=== PATIENT | female | born 1955 ===

== ENCOUNTER 2020-03-13 12:12 | Outpatient (REF) | payer MEDICARE, SELFPAY ==
--- NOTE | 2020-03-13 12:20 | MM_ITS ---
EXAMINATION: MM SCREENING DIGITAL BREAST TOMOSYNTHESIS, BILATERAL CLINICAL INFORMATION: Screening. Asymptomatic. The lifetime risk of breast cancer based on the Tyrer-Cuzick Model is 4.5%. COMPARISON: Mammography: March 08, 2019 and studies dating back to December 19, 2009 TECHNIQUE: Digital breast tomosynthesis is performed in both the craniocaudal and mediolateral oblique views along with computer-aided detection (CAD). Synthesized 2D images are generated from the tomosynthesis. Additional left cleavage view performed. FINDINGS: There are scattered areas of fibroglandular density (ACR BI-RADS breast composition Category b). Region of architectural distortion within the right breast again seen from previous surgery. No new abnormal dominant mass or suspicious grouping of microcalcifications identified. MM/MM tomosynthesis screening BI IMPRESSION: There are no significant changes from prior study. ASSESSMENT: BI-RADS 2: Benign RECOMMENDATION: Routine annual mammography screening. This patient's information was entered into a reminder system with a target due date for their next mammogram.
== END 2020-03-13 12:13 | disposition home or self-care (01) ==
LOC: HO.MAMMO 12:12
PROVIDERS: PCP Family Medicine; Visit Provider Family Medicine
DX: Z12.31 Encounter for screening mammogram for malignant neoplasm of breast (principal)
CPT/HCPCS: 77063; 77067

== ENCOUNTER 2020-03-15 10:44 | Outpatient (REF) | payer MEDICARE, SELFPAY ==
[2020-03-15 13:39] LABS: Basophils Percent Auto 0.5 % (0-2); Hemoglobin 8.9 g/dl (12.0-16.0); Lymphocytes Percent Auto 47.3 % (20-40); MANUAL DIFF FLAG SCAN; Mean Platelet Volume 13.9 fL (9.4-12.3); Red Cell Distribution Width 13.4 % (11.0-16.0); SCAN SMEAR FLAG 1
[2020-03-15 13:41] LABS: Eosinophils Absolute Auto 0.2 X10*3/uL (0.0-0.4); Eosinophils Percent Auto 3.5 % (0-4); Hematocrit 28.9 % (37-47); Mean Corpuscular HGB Conc 30.8 g/dl (31.0-35.0); Mean Corpuscular Hemoglobin 28.5 pg (27.0-33.0); Mean Corpuscular Volume 92.6 fL (80-98); Monocytes Absolute Auto 0.5 X10*3/uL (0.1-1.2); Monocytes Percent Auto 12.1 % (2-11); Neutrophils Absolute Auto 1.6 X10*3/uL (2.0-8.3); Neutrophils Percent Auto 36.6 % (45-73); Platelet Count 193 X10*3/uL (160-400); Red Blood Count 3.12 X10*6/uL (4.20-5.50); White Blood Count 4.3 X10*3/uL (4.8-10.8)
[2020-03-15 13:58] LABS: PLT ABN DIST 1
[2020-03-15 14:03] LABS: Albumin Level 3.6 g/dL (3.5-5.0); Calcium 9.5 mg/dL (8.4-10.2); Iron 55 mcg/dL (30-160); Magnesium 2.3 mg/dL (1.6-2.6); Percent Iron Saturation 22 % (15-50); Total Iron Binding Capacity 250 mcg/dL (228-428); Unsaturated Iron Binding 195 ug/dL
[2020-03-15 14:12] LABS: Glucose Urine UA NEG (NEG); Leukocyte Esterase Urine 1+ (NEG); Nitrite Urine POS (NEG); PH 5.5 (5.0-8.0); Specific Gravity - Urine 1.015 (1.005-1.025); Urine Blood NEG (NEG); Urine Ketones NEG (NEG); Urine Protein NEG (NEG-TRACE)
[2020-03-15 14:15] LABS: Appearance Urine CLOUDY; Color Urine YELLOW
[2020-03-15 14:25] LABS: Ferritin 123 ng/mL (10-250)
[2020-03-15 14:27] LABS: Creatinine Urine 84.69 mg/dL; Total Protein Urine Random 7 mg/dL (<12)
[2020-03-15 14:28] LABS: Creatinine Urine 85.04 mg/dL; Microalbum/Creatinine Ratio Ur 22.3 ug/mg cr; Total Protein Urine Random 8 mg/dL (<12)
[2020-03-15 14:37] LABS: RBC Urine 0 /HPF (0); WBC Urine 30-49 /HPF (0-4)
[2020-03-15 14:38] LABS: Bacteria Urine 3+ /LPF; Squamous Epithelial Cell Urine 2+ /LPF; WBC Clumps Urine NOTED
[2020-03-15 15:13] LABS: Anion Gap 16 (12-20); Blood Urea Nitrogen 83 mg/dL (9-16); Carbon Dioxide 28 mmol/L (22-29); Chloride 105 mmol/L (96-108); Estimated Glomerular Filt Rate 19; Potassium 4.8 mmol/l (3.3-5.1); Sodium 144 mmol/L (135-145)
[2020-03-15 15:14] LABS: Renal w Reflex Lab Use Only Order verified
== END 2020-03-15 10:45 | disposition home or self-care (01) ==
LOC: HO.10HDL 10:44
PROVIDERS: Visit Provider Internal Medicine Nephrology
DX: E11.22 Type 2 diabetes mellitus with diabetic chronic kidney disease (principal); I13.10 Hypertensive heart and chronic kidney disease without heart failure, with stage 1 through stage 4 chronic kidney disease, or unspecified chronic kidney disease; N18.30 Chronic kidney disease, stage 3 unspecified; D63.1 Anemia in chronic kidney disease; E11.21 Type 2 diabetes mellitus with diabetic nephropathy
CPT/HCPCS: 36415; 80051; 81001; 81003; 81015; 82040; 82043; 82310; 82565; 82728; 83540; 83735; 84100; 84156; 84520; 85025; 87086; 87088; 87186

== ENCOUNTER 2020-03-28 08:04 | Outpatient (REF) | payer MEDICARE, SELFPAY ==
[2020-03-28 17:53] LABS: Estimated Average Glucose 154 mg/dL; Hemoglobin A1C 131.7705 umol/L
[2020-04-05 11:36] LABS: Fructosamine 313 umol/L (205-285)
== END 2020-03-28 08:05 | disposition home or self-care (01) ==
LOC: HO.10HDL 08:04
PROVIDERS: Visit Provider Nurse Practitioner Gerontology
DX: E11.22 Type 2 diabetes mellitus with diabetic chronic kidney disease (principal); N18.9 Chronic kidney disease, unspecified
CPT/HCPCS: 82985; 83036

== ENCOUNTER → 2020-03-29 09:23 | Outpatient (BNVA) | payer MEDICARE, SELFPAY | PROVIDERS: PCP Nurse Practitioner Family; Referring Provider Nurse Practitioner Family; Visit Provider Nurse Practitioner Gerontology | DX: E11.65 Type 2 diabetes mellitus with hyperglycemia (principal); E11.22 Type 2 diabetes mellitus with diabetic chronic kidney disease; I12.9 Hypertensive chronic kidney disease with stage 1 through stage 4 chronic kidney disease, or unspecified chronic kidney disease; N18.4 Chronic kidney disease, stage 4 (severe); E78.5 Hyperlipidemia, unspecified; Z79.4 Long term (current) use of insulin | CPT/HCPCS: 99212 ==

== ENCOUNTER → 2020-04-30 08:55 | Outpatient (BNVA) | payer MEDICARE, SELFPAY | PROVIDERS: PCP Nurse Practitioner Family; Referring Provider Nurse Practitioner Family; Visit Provider Nurse Practitioner Gerontology | DX: E11.65 Type 2 diabetes mellitus with hyperglycemia (principal); E11.22 Type 2 diabetes mellitus with diabetic chronic kidney disease; I12.9 Hypertensive chronic kidney disease with stage 1 through stage 4 chronic kidney disease, or unspecified chronic kidney disease; N18.4 Chronic kidney disease, stage 4 (severe); Z79.4 Long term (current) use of insulin; E78.5 Hyperlipidemia, unspecified; R11.2 Nausea with vomiting, unspecified | CPT/HCPCS: 82947; 99212 ==

== ENCOUNTER → 2020-05-14 08:52 | Outpatient (BNVA) | payer MEDICARE, SELFPAY | PROVIDERS: PCP Nurse Practitioner Family; Visit Provider Nurse Practitioner Gerontology | DX: E11.22 Type 2 diabetes mellitus with diabetic chronic kidney disease (principal); I12.9 Hypertensive chronic kidney disease with stage 1 through stage 4 chronic kidney disease, or unspecified chronic kidney disease; N18.4 Chronic kidney disease, stage 4 (severe); E78.5 Hyperlipidemia, unspecified; E03.9 Hypothyroidism, unspecified; Z79.4 Long term (current) use of insulin | CPT/HCPCS: 82947; 99212 ==

== ENCOUNTER → 2020-06-04 14:04 | Outpatient (BNVA) | payer MEDICARE, SELFPAY | PROVIDERS: PCP Nurse Practitioner Family; Visit Provider Urology | DX: Z13.89 Encounter for screening for other disorder (principal) | CPT/HCPCS: Q3014 ==

== ENCOUNTER → 2020-06-12 09:04 | Outpatient (BNVA) | payer MEDICARE, SELFPAY | PROVIDERS: Visit Provider Physician Assistant | DX: K21.9 Gastro-esophageal reflux disease without esophagitis (principal); R11.2 Nausea with vomiting, unspecified | CPT/HCPCS: Q3014 ==

== ENCOUNTER 2020-06-29 08:24 | Outpatient (REF) | payer MEDICARE, SELFPAY ==
[2020-06-29 09:53] LABS: Estimated Average Glucose 186 mg/dL; Hemoglobin A1c % 8.1 %
[2020-06-29 09:58] LABS: Creatinine Urine 117.94 mg/dL
[2020-06-29 10:04] LABS: Alanine Aminotransferase 11 U/L (0-31); Albumin Level 3.9 g/dL (3.5-5.0); Alkaline Phosphatase 87 U/L (39-117); Anion Gap 14 (12-20); Aspartate Amino Transferase 13 U/L (5-31); Bilirubin Total 0.4 mg/dL (0.0-1.0); Blood Urea Nitrogen 94 mg/dL (9-16); Calcium 9.2 mg/dL (8.4-10.2); Carbon Dioxide 25 mmol/L (22-29); Chloride 108 mmol/L (96-108); Cholesterol 89 mg/dL; Estimated Glomerular Filt Rate 21; Glucose Fasting 217 mg/dL (60-99); HDL Cholesterol 31 mg/dL; LDL Cholesterol Calculated 30 mg/dl; Potassium 4.6 mmol/L (3.3-5.1); Sodium 142 mmol/L (135-145); Triglycerides 140 mg/dL
[2020-06-30 08:17] LABS: LDL Cholesterol Direct 31 mg/dL (<100)
[2020-07-03 14:17] LABS: Fructosamine 377 umol/L (205-285)
== END 2020-06-29 08:25 | disposition home or self-care (01) ==
LOC: HO.LAB 08:24
PROVIDERS: PCP Family Medicine; Visit Provider Nurse Practitioner Gerontology
DX: E11.65 Type 2 diabetes mellitus with hyperglycemia (principal); E11.22 Type 2 diabetes mellitus with diabetic chronic kidney disease; N18.9 Chronic kidney disease, unspecified; Z79.4 Long term (current) use of insulin
CPT/HCPCS: 36415; 80053; 80061; 82043; 82985; 83036; 83721

== ENCOUNTER → 2020-08-02 08:11 | Outpatient (BNVA) | payer MEDICARE, SELFPAY | PROVIDERS: PCP Family Medicine; Visit Provider Nurse Practitioner Gerontology | DX: I12.9 Hypertensive chronic kidney disease with stage 1 through stage 4 chronic kidney disease, or unspecified chronic kidney disease (principal); E11.22 Type 2 diabetes mellitus with diabetic chronic kidney disease; E11.65 Type 2 diabetes mellitus with hyperglycemia; N18.4 Chronic kidney disease, stage 4 (severe); E66.01 Morbid (severe) obesity due to excess calories; Z68.37 Body mass index [BMI] 37.0-37.9, adult; E78.5 Hyperlipidemia, unspecified; Z79.4 Long term (current) use of insulin; Z71.3 Dietary counseling and surveillance | CPT/HCPCS: 82947; 99212 ==

== ENCOUNTER 2020-08-05 10:04 | Outpatient (REF) | payer MEDICARE, SELFPAY ==
[2020-08-05 12:06] LABS: Glucose Urine UA NEG (NEG); Leukocyte Esterase Urine 2+ (NEG); Nitrite Urine POS (NEG); PH 5.5 (5.0-8.0); Urine Blood NEG (NEG); Urine Ketones NEG (NEG); Urine Protein NEG (NEG-TRACE)
[2020-08-05 12:08] LABS: Appearance Urine CLOUDY; Color Urine YELLOW
[2020-08-05 12:11] LABS: Hematocrit 29.5 % (37-47); Hemoglobin 9.2 g/dl (12.0-16.0); Mean Corpuscular HGB Conc 31.2 g/dl (31.0-35.0); Mean Corpuscular Hemoglobin 28.3 pg (27.0-33.0); Mean Corpuscular Volume 90.8 fL (80-98); Platelet Count 226 X10*3/uL (160-400); Red Blood Count 3.25 X10*6/uL (4.20-5.50); Red Cell Distribution Width 12.4 % (11.0-16.0); White Blood Count 5.3 X10*3/uL (4.8-10.8)
[2020-08-05 12:15] LABS: Bacteria Urine 2+ /LPF; Squamous Epithelial Cell Urine 2+ /LPF; WBC Urine 50-75 /HPF (0-4)
[2020-08-05 12:29] LABS: Creatinine Urine 112.54 mg/dL; Microalbum/Creatinine Ratio Ur 75.5 ug/mg cr; Total Protein Urine Random 23 mg/dL (<12)
[2020-08-05 12:35] LABS: Albumin Level 3.9 g/dL (3.5-5.0); Anion Gap 12 (12-20); Blood Urea Nitrogen 61 mg/dL (9-16); Calcium 9.3 mg/dL (8.4-10.2); Carbon Dioxide 29 mmol/L (22-29); Chloride 105 mmol/L (96-108); Estimated Glomerular Filt Rate 22; Magnesium 2.4 mg/dL (1.6-2.6); Phosphorus 3.7 mg/dL (2.7-4.5); Potassium 5.5 mmol/L (3.3-5.1); Sodium 140 mmol/L (135-145)
[2020-08-05 12:50] LABS: Vitamin D 25-OH Total 31.6 ng/mL (>30)
[2020-08-06 16:16] LABS: PTHI 53 pg/mL (14-64)
== END 2020-08-05 10:05 | disposition home or self-care (01) ==
LOC: HO.10HDL 10:04
PROVIDERS: Visit Provider Internal Medicine Nephrology
DX: I12.9 Hypertensive chronic kidney disease with stage 1 through stage 4 chronic kidney disease, or unspecified chronic kidney disease (principal); E11.22 Type 2 diabetes mellitus with diabetic chronic kidney disease; N18.4 Chronic kidney disease, stage 4 (severe); D63.1 Anemia in chronic kidney disease; R80.1 Persistent proteinuria, unspecified
CPT/HCPCS: 36415; 80051; 81001; 82040; 82043; 82306; 82310; 82565; 83735; 83970; 84100; 84156; 84520; 85027; 87086; 87088; 87186

== ENCOUNTER 2020-08-26 09:46 | Outpatient (REF) | payer MEDICARE, SELFPAY ==
[2020-08-26 14:00] LABS: Hematocrit 29.6 % (37-47); Hemoglobin 9.3 g/dl (12.0-16.0); Mean Corpuscular HGB Conc 31.4 g/dl (31.0-35.0); Mean Corpuscular Hemoglobin 28.6 pg (27.0-33.0); Mean Corpuscular Volume 91.1 fL (80-98); Mean Platelet Volume 12.9 fL (9.4-12.3); Platelet Count 271 X10*3/uL (160-400); Red Blood Count 3.25 X10*6/uL (4.20-5.50)
[2020-08-26 14:22] LABS: Albumin Level 3.7 g/dL (3.5-5.0); Anion Gap 13 (12-20); Blood Urea Nitrogen 69 mg/dL (9-16); Calcium 9.1 mg/dL (8.4-10.2); Carbon Dioxide 25 mmol/L (22-29); Chloride 108 mmol/L (96-108); Estimated Glomerular Filt Rate 22; Magnesium 2.5 mg/dL (1.6-2.6); Phosphorus 4.3 mg/dL (2.7-4.5); Potassium 5.1 mmol/L (3.3-5.1); Sodium 141 mmol/L (135-145)
[2020-08-26 14:25] LABS: Glucose Urine UA NEG (NEG); Leukocyte Esterase Urine 1+ (NEG); Nitrite Urine POS (NEG); PH 5.5 (5.0-8.0); Urine Blood NEG (NEG); Urine Ketones NEG (NEG); Urine Protein TRACE MG/DL (NEG-TRACE)
[2020-08-26 14:33] LABS: Vitamin D 25-OH Total 27.5 ng/mL (>30)
[2020-08-26 14:39] LABS: Appearance Urine HAZY; Color Urine YELLOW
[2020-08-26 14:54] LABS: Creatinine Urine 90.06 mg/dL; Microalbum/Creatinine Ratio Ur 136.5 ug/mg cr; Total Protein Urine Random 28 mg/dL (<12)
[2020-08-26 15:30] LABS: Bacteria Urine 4+ /LPF; RBC Urine 0-2 /HPF (0); Renal Epithelial Cells Urine 2+ /LPF; Squamous Epithelial Cell Urine 2+ /LPF; WBC Urine 30-49 /HPF (0-4)
[2020-08-27 11:52] LABS: Calcium (PTHI) 9.2 mg/dL (8.6-10.4); PTHI 58 pg/mL (14-64)
== END 2020-08-26 09:47 | disposition home or self-care (01) ==
LOC: HO.10HDL 09:46
PROVIDERS: Visit Provider Internal Medicine Nephrology
DX: N18.4 Chronic kidney disease, stage 4 (severe) (principal)
CPT/HCPCS: 36415; 80051; 81001; 82040; 82043; 82306; 82310; 82565; 83735; 83970; 84100; 84156; 84520; 85027; 87086; 87088; 87186

== ENCOUNTER → 2020-10-28 09:34 | Outpatient (BNVA) | payer MEDICARE, SELFPAY | PROVIDERS: PCP Family Medicine; Visit Provider Nurse Practitioner Gerontology | DX: E11.65 Type 2 diabetes mellitus with hyperglycemia (principal); E11.22 Type 2 diabetes mellitus with diabetic chronic kidney disease; I12.9 Hypertensive chronic kidney disease with stage 1 through stage 4 chronic kidney disease, or unspecified chronic kidney disease; N18.4 Chronic kidney disease, stage 4 (severe); E66.01 Morbid (severe) obesity due to excess calories; E78.5 Hyperlipidemia, unspecified; E04.9 Nontoxic goiter, unspecified; E16.2 Hypoglycemia, unspecified; Z79.4 Long term (current) use of insulin; Z68.37 Body mass index [BMI] 37.0-37.9, adult | CPT/HCPCS: 82947; 99212 ==

== ENCOUNTER 2020-10-30 07:59 | Outpatient (REF) | payer MEDICARE, SELFPAY ==
[2020-10-30 09:20] LABS: Free T4 (Free Thyroxine) 0.98 ng/dL (0.71-1.85); Thyroid Stimulating Hormone 1.35 uIU/mL (0.32-4.0)
[2020-10-31 17:12] LABS: Thyroglobulin Antibodies <1 IU/mL (< or = 1)
[2020-10-31 21:16] LABS: Thyroid Peroxidase Antibodies 3 IU/mL (<9)
== END 2020-10-30 08:00 | disposition home or self-care (01) ==
LOC: HO.LAB 07:59
PROVIDERS: PCP Family Medicine; Visit Provider Nurse Practitioner Gerontology
DX: E04.9 Nontoxic goiter, unspecified (principal)
CPT/HCPCS: 36415; 84439; 84443; 86376; 86800

== ENCOUNTER 2020-11-14 10:03 | Outpatient (REF) | payer MEDICARE, SELFPAY ==
--- NOTE | ~2020-11-14 | US_ITS ---
EXAMINATION: US THYROID CLINICAL INFORMATION: Nontoxic goiter, unspecified. COMPARISON: None TECHNIQUE: Linear transducer jo-scale and color Doppler examination with attention to the region of the thyroid. FINDINGS: SIZE: Measurements of the thyroid lobes and nodules are given in sagittal, anteroposterior and transverse dimensions respectively. Right Thyroid Lobe: 4.1 x 1.1 x 1.5 cm, volume 3.5 mL. Parenchyma: The gland echotexture is homogeneous. Thyroid vascularity is normal. Left Thyroid Lobe: 3.6 x 1.1 x 1.0 cm, volume 2.1 mL. Parenchyma: The gland echotexture is homogeneous. Thyroid vascularity is normal. Isthmus: 0.3 cm in maximum AP dimension. No focal thyroid nodule is seen. Small subcentimeter cyst in left lobe. NODES: No lymphadenopathy is seen in the tissue surrounding the thyroid gland. US/US thyroid IMPRESSION: Unremarkable thyroid ultrasound. ACR TI-RADS RECOMMENDATION REFERENCE: Ultrasound-guided fine-needle aspiration, followup ultrasound, no further followup. * TR1 (0 point) and TR 2 (2 points): No FNA or followup. * TR3 (3 points): FNA if more than or equal to 2.5 cm in maximum dimension, followup ultrasound in 1, 3 and 5 years if 1.5 to 2.4 cm in maximum dimension. * TR4 (4-6 points): FNA if more than or equal to 1.5 cm in maximum dimension, followup ultrasound in 1, 2, 3 and 5 years if 1 to 1.4 cm in maximum dimension. * TR5 (more than or equal to 7 points): FNA if more than or equal to 1 cm in maximum dimension, followup ultrasound every year for 5 years if 0.5 to 0.9 cm in maximum dimension. * TR3, TR4 or TR5 nodules that are below the size threshold for followup receive no followup.
== END 2020-11-14 10:04 | disposition home or self-care (01) ==
LOC: HO.US 10:03
PROVIDERS: Visit Provider Nurse Practitioner Gerontology
DX: E04.9 Nontoxic goiter, unspecified (principal)
CPT/HCPCS: 76536

== ENCOUNTER 2020-11-28 12:45 | Outpatient (REF) | payer MEDICARE, SELFPAY ==
[2020-11-28 13:42] LABS: Glucose Urine UA NEG (NEG); Leukocyte Esterase Urine 2+ (NEG); Nitrite Urine NEG (NEG); Specific Gravity - Urine 1.015 (1.005-1.025); Urine Blood NEG (NEG); Urine Ketones NEG (NEG); Urine Protein 1+ MG/DL (NEG-TRACE)
[2020-11-28 13:44] LABS: Appearance Urine HAZY; Color Urine YELLOW
[2020-11-28 13:58] LABS: Bacteria Urine 2+ /LPF; Creatinine Urine 64.37 mg/dL; Hematocrit 29.5 % (37-47); Hemoglobin 9.2 g/dl (12.0-16.0); Mean Corpuscular HGB Conc 31.2 g/dl (31.0-35.0); Mean Corpuscular Hemoglobin 26.8 pg (27.0-33.0); Mean Platelet Volume 12.8 fL (9.4-12.3); Microalbum/Creatinine Ratio Ur 346.4 ug/mg cr; Platelet Count 223 X10*3/uL (160-400); Protein/Creatinine Ratio, Ur 0.56 (<0.2); RBC Urine 0-2 /HPF (0); Red Blood Count 3.43 X10*6/uL (4.20-5.50); Red Cell Distribution Width 13.9 % (11.0-16.0); Squamous Epithelial Cell Urine 1+ /LPF; Total Protein Urine Random 36 mg/dL (<12); WBC Urine 30-49 /HPF (0-4); White Blood Count 5.9 X10*3/uL (4.8-10.8)
[2020-11-28 14:02] LABS: Anion Gap 17 (12-20); Blood Urea Nitrogen 87 mg/dL (9-16); Calcium 9.7 mg/dL (8.4-10.2); Carbon Dioxide 25 mmol/L (22-29); Chloride 106 mmol/L (96-108); Estimated Glomerular Filt Rate 20; Iron 48 mcg/dL (30-160); Magnesium 2.3 mg/dL (1.6-2.6); Percent Iron Saturation 19 % (15-50); Phosphorus 4.4 mg/dL (2.7-4.5); Potassium 4.9 mmol/L (3.3-5.1); Sodium 143 mmol/L (135-145); Total Iron Binding Capacity 254 mcg/dL (228-428); Unsaturated Iron Binding 206 ug/dL
[2020-11-28 14:23] LABS: Ferritin 154 ng/mL (10-250); Vitamin D 25-OH Total 38.8 ng/mL (>30)
[2020-11-30 09:52] LABS: Calcium (PTHI) 9.6 mg/dL (8.6-10.4); PTHI 70 pg/mL (14-64)
== END 2020-11-28 12:46 | disposition home or self-care (01) ==
LOC: HO.10HDL 12:45
PROVIDERS: Visit Provider Internal Medicine Nephrology
DX: I12.9 Hypertensive chronic kidney disease with stage 1 through stage 4 chronic kidney disease, or unspecified chronic kidney disease (principal); N18.4 Chronic kidney disease, stage 4 (severe); E11.22 Type 2 diabetes mellitus with diabetic chronic kidney disease; D63.1 Anemia in chronic kidney disease; E87.5 Hyperkalemia; R80.1 Persistent proteinuria, unspecified; N25.0 Renal osteodystrophy
CPT/HCPCS: 36415; 80051; 81001; 82040; 82043; 82306; 82310; 82565; 82728; 83540; 83735; 83970; 84100; 84156; 84520; 85027; 87086; 87088; 87186

== ENCOUNTER 2020-12-10 17:11 | Emergency (ER) | payer MEDICARE, SELFPAY ==
[2020-12-10 17:49] VITALS: BP 189/63; PULSE 53; RESP 19; TEMP 36.9; O2SAT 98; BMI 36.1
--- NOTE | 2020-12-10 18:33 | ED_ITS ---
HPI - Skin/Abscess/Foreign Bdy General Chief complaint: Skin/Abscess/Foreign Body Stated complaint: rash Time Seen by Provider: 12/10/20 18:14 Source: patient Mode of arrival: ambulatory History of Present Illness HPI narrative: 65yo female with a past medical history of anemia of chronic disease, asthma, CKD, HTN, HLD, hypothyroid, diabetes, obesity, presenting to the ED complaining of erythematous pruritic rash noted to chest, upper ex tremities, abdomen, and lower extremities x3 days. Reports saw PCP yesterday as prescribed Clobetasol ointment with little relief. Denies fever, chills, recent travel, known insect bites, new exposures, SOB, wheezing, throat closing sensation, known allergens MD complaint: rash Related Data Home Medications Medication Instructions Recorded Confirmed furosemide 20 mg tablet 60 mg PO BID tab 03/29/20 10/28/20 levothyroxine 75 mcg tablet 75 mcg PO DAILY 03/29/20 10/28/20 metoprolol tartrate 25 mg tablet 25 mg PO DAILY 03/29/20 10/28/20 albuterol sulfate 90 mcg/actuation 0 mcg INHALATION 04/30/20 10/28/20 aerosol inhaler blood sugar diagnostic #10 ea 04/30/20 10/28/20 ergocalciferol (vitamin D2) 1,250 1,250 mcg PO .COMPLEX 04/30/20 10/28/20 mcg (50,000 unit) capsule lancets 33 gauge #100 ea 04/30/20 10/28/20 pen needle, diabetic 32 gauge x #50 ea 04/30/20 10/28/20 hydralazine 25 mg tablet 25 mg PO BID 06/04/20 10/28/20 valsartan 320 mg tablet 320 mg PO QAM 06/04/20 10/28/20 cholecalciferol (vitamin D3) 50 50 mcg PO DAILY 08/02/20 10/28/20 mcg (2,000 unit) tablet Previous Rx's Medication Instructions Recorded flash glucose scanning reader #1 ea 05/14/20 flash glucose sensor 1 ea TOPICAL Q2W #2 ea 05/14/20 pen needle, diabetic 32 gauge x #360 ea 05/14/20 oxybutynin chloride 10 mg 10 mg PO DAILY #30 tab 06/04/20 tablet,extended release 24 hr insulin aspart U-100 100 unit/mL 2 - 4 unit SUBCUT TID 90 Days #15 07/04/20 (3 mL) subcutaneous pen ml ezetimibe 10 mg tablet 10 mg PO BEDTIME #30 tab 08/11/20 pioglitazone 15 mg tablet 15 mg PO QAM #90 tab 08/16/20 alirocumab 75 mg/mL subcutaneous 75 mg SUBCUT Q2W #2 ml 09/18/20 pen injector rosuvastatin 40 mg tablet 40 mg PO BEDTIME #90 tab 10/11/20 famotidine 20 mg tablet 20 mg PO BEDTIME #30 tab 10/14/20 amlodipine 2.5 mg tablet 2.5 mg PO QPM #30 tab 10/28/20 amlodipine 5 mg tablet 5 mg PO QAM #30 tab 10/28/20 insulin glargine 100 unit/mL (3 15 unit SUBCUT QPM #15 ml 10/28/20 mL) subcutaneous pen cetirizine [Zyrtec] 10 mg PO DAILY #14 cap 12/10/20 diphenhydramine-zinc acetate 1 spray TOPICAL TID PRN #59 ml 12/10/20 [Benadryl Itch Cooling] Allergies Allergy/AdvReac Type Severity Reaction Status Date / Time No Known Allergies Allergy Verified 12/10/20 17:48 Review of Systems Review of Systems: Constitutional: No Fever, No Chills ENT/Mouth: No Ear Pain, No Hoarseness, No sore throat, No Rhinorrhea, No Swallowing Difficulty Cardiovascular: No Chest Pain, No SOB Respiratory: No Cough, No Sputum, No Wheezing Gastrointestinal: No Nausea, No Vomiting, No Abdominal pain Musculoskeletal: No joint pain, No Myalgias, No Joint Swelling Skin: No Skin Lesions, + rash Yes all other systems are reviewed and are negative [facility] Past Medical History Attestation statement: The following information was validated with the patient. Medical History Allergic rhinitis Anemia of chronic disease Asthma Chronic kidney disease, stage 4 (severe) Essential hypertension Hyperlipidemia LDL goal <70 Hypothyroidism Obesity Type 2 diabetes mellitus with chronic kidney disease Type 2 diabetes mellitus with hyperglycemia, with long-term current use of insulin Urge incontinence Urgency of micturition Surgical History History of breast lump/mass excision Hx of cholecystectomy Family History Family History Father CVD (cardiovascular disease) Mother Diabetes Social History Social History (Updated 06/12/20 @ 09:33 by Gretta Doherty PA-C) Household Members: Spouse Alcohol intake: never Advance Directives: No Advance Directives Information Provided: Yes Physical Exam Vital Signs: Vital Signs: Last Vital Signs Temp 98.5 F 12/10/20 17:49 Pulse 53 12/10/20 17:49 Resp 19 12/10/20 17:49 BP 189/63 H 12/10/20 17:49 Pulse Ox 98 12/10/20 17:49 Body Mass Index 36.1 Const: General: cooperative, healthy appearing and no acute distress Orientation/consciousness: patient oriented x3 Limitations: no limitations HENMT: Head: Yes normal to inspection Ears: hearing grossly normal bilaterally General nose exam: Normal external nose present Face and sinus: Yes normal facial exam Eyes: General: appearance normal, both eyes and all related structures EOM: EOMs intact bilaterally Neck: Neck: Yes normal visual inspection and Yes no meningeal signs Resp: Effort & Inspection: normal respiratory effort Auscultation: clear to auscultation bilaterally, no crackles, no rales, no rhonchi and no wheezes Cardio: Rate: regular rate Heart sounds: S1 normal heart sound present and S2 normal heart sound present GI: Inspection: Yes normal to inspection Skin: Other: Fine erythematous macular papular rash noted to abdomen, buttock, chest, and upper extremities No mucous membrane or palm or sole involvement Wounds: no wounds Neuro: General: patient oriented x3 and no meningeal signs Gait exam (Neuro): Normal gait present Extrem: General: Yes normal to inspection MDM - Skin/Abscess/Foreign Bdy MDM Narrative Medical decision making narrative: 65yo female with a past medical history of anemia of chronic disease, asthma, CKD, HTN, HLD, hypothyroid, diabetes, obesity, presenting to the ED complaining of erythematous pruritic rash noted to chest, upper extremities, abdomen, and lower extremities x3 days. On exam vital signs stable, NAD/well-appearing, physical exam as above. Exam consistent with contact dermatitis. No evidence of respiratory distress. No mucous membrane involvement. Likely contact dermatitis. With shared decision making decided to avoid p.o. prednisone due to patient being diabetic Will initiate Zyrtec, Benadryl, topical Benadryl, and dermatology follow-up Discharge Plan Discharge Clinical Impression: Contact dermatitis Patient Disposition: Home, Self-Care Instructions: Contact Dermatitis (ED) Additional Instructions: Continue using a topical steroid cream, only use prescribed cream or hydrocortisone, do not use both as they are both the same type of medication. Avoid application to face, genital area, hands or feet as can discolored skin You should start taking Benadryl, take at night as it and will make you drowsy Take Zyrtec during the day You may also apply topical Benadryl cream for itching Please follow-up with a pastoral counselor If her symptoms persist or worsen, rashes spreading, he developed any shortness of breath, wheezing please return to the ED Contin?e usando jairon crema con esteroides t?picos, solo use la crema recetada o hidrocortisona, no use ambas, ya que ambas son el mismo tipo de medicamento. Evite la aplicaci?n en la noa, el ?jaun genital, las clarice o los pies, ya que la piel puede decolorarse. Debe comenzar a darius Benadryl, t?henry por la noche ya que le adry? ru?o. Harmony Zyrtec colette el d?a. Tambi?n puede aplicar crema t?pica de Benadryl para la picaz?n. Haz un seguimiento con un dermat?logo. Si eden s?ntomas persisten o empeoran, las erupciones se extienden, ?l desarroll? dificultad para respirar, sibilancias, por favor regrese al servicio de urgencias. Prescriptions: New Zyrtec 10 mg capsule 10 mg PO DAILY Qty: 14 RF: 0 Benadryl Itch Cooling 2-0.1 % aerosol,spray 1 spray topical TID PRN (Reason: skin irritation) Qty: 59 RF: 0 No Action insulin aspart U-100 [Novolog Flexpen U-100 Insulin] 100 unit/mL (3 mL) insulin pen 2 - 4 unit subcut TID 90 Days Qty: 15 RF: 1 ezetimibe 10 mg tablet 10 mg PO BEDTIME Qty: 30 RF: 3 pioglitazone 15 mg tablet 15 mg PO QAM Qty: 90 RF: 1 Praluent Pen 75 mg/mL pen injector 75 mg subcut Q2W Qty: 2 RF: 3 rosuvastatin 40 mg tablet 40 mg PO BEDTIME Qty: 90 RF: 0 famotidine 20 mg tablet 20 mg PO BEDTIME Qty: 30 RF: 3 levothyroxine 75 mcg tablet 75 mcg PO DAILY RF: 0 metoprolol tartrate 25 mg tablet 25 mg PO DAILY RF: 0 furosemide 20 mg tablet 60 mg PO BID RF: 0 FreeStyle Juanita 14 Day Sensor Kit 1 ea topical Q2W Qty: 2 RF: 11 (DME) FreeStyle Juanita 14 Day [place]tt Misc See Rx Instructions .ROUTE .MEDSUPPLY Qty: 1 RF: 0 (DME) pen needle, diabetic [BD Ultra-Fine Maria E Pen Needle] 32 gauge x 5/32 needle See Rx Instructions .ROUTE .MEDSUPPLY Qty: 360 RF: 3 valsartan 320 mg tablet 320 mg PO QAM RF: 0 hydralazine 25 mg tablet 25 mg PO BID RF: 0 oxybutynin chloride 10 mg tablet extended release 24hr 10 mg PO DAILY Qty: 30 RF: 6 Lantus Solostar U-100 Insulin 100 unit/mL (3 mL) insulin pen 15 unit subcut QPM Qty: 15 RF: 3 amlodipine 2.5 mg tablet 2.5 mg PO QPM Qty: 30 RF: 3 amlodipine 5 mg tablet 5 mg PO QAM Qty: 30 RF: 3 cholecalciferol (vitamin D3) 50 mcg (2,000 unit) tablet 50 mcg PO DAILY RF: 0 (DME) lancets 33 gauge misc See Rx Instructions ea .ROUTE .MEDSUPPLY Qty: 100 RF: 0 (DME) pen needle, diabetic 32 gauge x 5/32 needle See Rx Instructions ea .ROUTE DAILY Qty: 50 RF: 0 ergocalciferol (vitamin D2) 1,250 mcg (50,000 unit) capsule 1,250 mcg PO .COMPLEX RF: 0 (DME) FreeStyle Lite Strips Strip See Rx Instructions ea Not Applicable BID Qty: 10 RF: 0 albuterol sulfate 90 mcg/actuation HFA aerosol inhaler 0 mcg inhalation RF: 0 Referrals: Melissa Cho PA [Physician Survey Crew Chief] - 2 days Guillaume Luna MD [Physician] - 2 days Nick Mccarthy MD [Physician] - 2 days Print Language: [place]
== END 2020-12-10 18:51 | disposition home or self-care (01) ==
PROVIDERS: Emergency Provider Internal Medicine
DX: L25.9 Unspecified contact dermatitis, unspecified cause (principal); E11.22 Type 2 diabetes mellitus with diabetic chronic kidney disease; I12.9 Hypertensive chronic kidney disease with stage 1 through stage 4 chronic kidney disease, or unspecified chronic kidney disease; N18.4 Chronic kidney disease, stage 4 (severe); D63.1 Anemia in chronic kidney disease
CPT/HCPCS: 99283

== ENCOUNTER → 2021-01-31 09:43 | Outpatient (BNVA) | payer MEDICARE, SELFPAY | PROVIDERS: Visit Provider Nurse Practitioner Gerontology | DX: E11.65 Type 2 diabetes mellitus with hyperglycemia (principal); E11.22 Type 2 diabetes mellitus with diabetic chronic kidney disease; I12.9 Hypertensive chronic kidney disease with stage 1 through stage 4 chronic kidney disease, or unspecified chronic kidney disease; N18.4 Chronic kidney disease, stage 4 (severe); E78.5 Hyperlipidemia, unspecified; E66.01 Morbid (severe) obesity due to excess calories; E55.9 Vitamin D deficiency, unspecified; Z68.37 Body mass index [BMI] 37.0-37.9, adult; Z79.4 Long term (current) use of insulin | CPT/HCPCS: 82947; 83036; 99212 ==

== ENCOUNTER 2021-03-19 10:23 | Outpatient (REF) | payer MEDICARE, SELFPAY ==
[2021-03-19 14:07] LABS: Appearance Urine HAZY; Color Urine YELLOW; Glucose Urine UA NEG (NEG); Leukocyte Esterase Urine 1+ (NEG); Nitrite Urine NEG (NEG); PH 5.5 (5.0-8.0); Specific Gravity - Urine 1.015 (1.005-1.025); Urine Blood NEG (NEG); Urine Ketones NEG (NEG); Urine Protein 1+ MG/DL (NEG-TRACE)
[2021-03-19 14:23] LABS: Hematocrit 31.7 % (37-47); Hemoglobin 9.8 g/dl (12.0-16.0); Mean Corpuscular HGB Conc 30.9 g/dl (31.0-35.0); Mean Corpuscular Hemoglobin 27.1 pg (27.0-33.0); Mean Corpuscular Volume 87.8 fL (80-98); Platelet Count 216 X10*3/uL (160-400); Red Blood Count 3.61 X10*6/uL (4.20-5.50); Red Cell Distribution Width 13.1 % (11.0-16.0); White Blood Count 6.2 X10*3/uL (4.8-10.8)
[2021-03-19 14:41] LABS: Anion Gap 14 (12-20); Blood Urea Nitrogen 60 mg/dL (9-16); Calcium 9.5 mg/dL (8.4-10.2); Carbon Dioxide 27 mmol/L (22-29); Chloride 104 mmol/L (96-108); Estimated Glomerular Filt Rate 24; Iron 40 mcg/dL (30-160); Magnesium 2.3 mg/dL (1.6-2.6); Percent Iron Saturation 16 % (15-50); Phosphorus 3.7 mg/dL (2.7-4.5); Potassium 5.1 mmol/L (3.3-5.1); Sodium 140 mmol/L (135-145); Total Iron Binding Capacity 251 mcg/dL (228-428); Unsaturated Iron Binding 211 ug/dL
[2021-03-19 14:48] LABS: Creatinine Urine 70.99 mg/dL; Microalbum/Creatinine Ratio Ur 681.7 ug/mg cr; Protein/Creatinine Ratio, Ur 0.99 (<0.2); Total Protein Urine Random 70 mg/dL (<12)
[2021-03-19 14:55] LABS: Vitamin D 25-OH Total 44.1 ng/mL (>30)
[2021-03-19 15:04] LABS: Bacteria Urine 3+ /LPF; Squamous Epithelial Cell Urine 2+ /LPF; WBC Urine 30-49 /HPF (0-4)
[2021-03-21 10:32] LABS: Calcium (PTHI) 9.5 mg/dL (8.6-10.4); PTHI 47 pg/mL (14-64)
== END 2021-03-19 10:24 | disposition home or self-care (01) ==
LOC: HO.10HDL 10:23
PROVIDERS: Visit Provider Internal Medicine Nephrology
DX: E11.29 Type 2 diabetes mellitus with other diabetic kidney complication (principal); E11.22 Type 2 diabetes mellitus with diabetic chronic kidney disease; N18.4 Chronic kidney disease, stage 4 (severe); R80.1 Persistent proteinuria, unspecified; N25.0 Renal osteodystrophy; D63.1 Anemia in chronic kidney disease
CPT/HCPCS: 36415; 80051; 81001; 82040; 82043; 82306; 82310; 82565; 83540; 83735; 83970; 84100; 84156; 84520; 85027; 87086; 87088; 87186

== ENCOUNTER 2021-03-26 11:34 | Outpatient (REF) | payer MEDICARE, SELFPAY ==
--- NOTE | ~2021-03-26 | MM_ITS ---
EXAMINATION: MM SCREENING DIGITAL BREAST TOMOSYNTHESIS, BILATERAL CLINICAL INFORMATION: Screening. Asymptomatic. Prior history right breast surgical biopsy 2012. The lifetime risk of breast cancer based on the Tyrer-Cuzick Model is 5%. COMPARISON: Mammography: 03/13/2020, 03/08/2019, 02/14/2018 TECHNIQUE: Digital breast tomosynthesis is performed in both the craniocaudal and mediolateral oblique views along with computer-aided detection (CAD). Synthesized 2D images are generated from the tomosynthesis. Additional exaggerated left CC view is provided. FINDINGS: There are scattered areas of fibroglandular density (ACR BI-RADS breast composition Category b). Parenchymal pattern is similar to prior studies. There is no developing density or interval mass or architectural abnormality. There is old scarring right breast upper outer quadrant again seen consistent with the prior surgery 2012. Grouped benign coarse calcifications are again noted anterior central 3:00 right breast and there is a incidental circumscribed nodule with associated coarse calcification posterior 3:00 left breast. Scattered bilateral vascular calcifications are present. There are no significant changes. MM/MM tomosynthesis screening BI IMPRESSION: No mammographic evidence of malignancy. ASSESSMENT: BI-RADS 2: Benign RECOMMENDATION: Routine annual mammography screening. This patient's information was entered into a reminder system with a target due date for their next mammogram.
== END 2021-03-26 11:35 | disposition home or self-care (01) ==
LOC: HO.MAMMO 11:34
PROVIDERS: Visit Provider Internal Medicine Geriatric Medicine
DX: Z12.31 Encounter for screening mammogram for malignant neoplasm of breast (principal)
CPT/HCPCS: 77063; 77067

== ENCOUNTER → 2021-03-31 13:32 | Outpatient (BNVA) | payer MEDICARE, SELFPAY | DX: N39.41 Urge incontinence (principal); R39.15 Urgency of urination | CPT/HCPCS: 51798; 99212 ==

== ENCOUNTER 2021-07-31 11:14 | Outpatient (REF) | payer MEDICARE, SELFPAY ==
[2021-07-31 14:16] LABS: Appearance Urine HAZY; Color Urine YELLOW; Glucose Urine UA NEG (NEG); Leukocyte Esterase Urine 2+ (NEG); Nitrite Urine POS (NEG); Specific Gravity - Urine 1.015 (1.005-1.025); Urine Blood NEG (NEG); Urine Ketones NEG (NEG); Urine Protein 1+ MG/DL (NEG-TRACE)
[2021-07-31 14:17] LABS: Albumin Level 3.9 g/dL (3.5-5.0); Calcium 9.4 mg/dL (8.4-10.2); Hematocrit 33.1 % (37.0-47.0); Hemoglobin 10.3 g/dl (12.0-16.0); Iron 68 mcg/dL (30-160); Magnesium 2.5 mg/dL (1.6-2.6); Mean Corpuscular HGB Conc 31.1 g/dl (31.0-35.0); Mean Corpuscular Hemoglobin 28.5 pg (27.0-33.0); Mean Corpuscular Volume 91.4 fL (80.0-98.0); Mean Platelet Volume 13.7 fL (9.4-12.3); Percent Iron Saturation 30 % (15-50); Phosphorus 4.7 mg/dL (2.7-4.5); Platelet Count 210 X10*3/uL (160-400); Red Blood Count 3.62 X10*6/uL (4.20-5.50); Red Cell Distribution Width 13.1 % (11.0-16.0); Total Iron Binding Capacity 230 mcg/dL (228-428); Unsaturated Iron Binding 162 ug/dL
[2021-07-31 14:30] LABS: Creatinine Urine 83.75 mg/dL; Microalbum/Creatinine Ratio Ur 459.7 ug/mg cr; Protein/Creatinine Ratio, Ur 0.69 (<0.2); Total Protein Urine Random 58 mg/dL (<12)
[2021-07-31 14:39] LABS: Vitamin D 25-OH Total 43.1 ng/mL (>30)
[2021-07-31 14:42] LABS: Bacteria Urine 4+ /LPF; RBC Urine 0 /HPF (0); Squamous Epithelial Cell Urine 1+ /LPF; WBC Urine 50-75 /HPF (0-4)
[2021-08-01 18:21] LABS: Calcium (PTHI) 9.5 mg/dL (8.6-10.4); PTHI 76 pg/mL (14-64)
== END 2021-07-31 11:15 | disposition home or self-care (01) ==
LOC: HO.10HDL 11:14
PROVIDERS: Visit Provider Internal Medicine Nephrology
DX: N18.4 Chronic kidney disease, stage 4 (severe) (principal); E11.22 Type 2 diabetes mellitus with diabetic chronic kidney disease; D63.1 Anemia in chronic kidney disease; R80.1 Persistent proteinuria, unspecified
CPT/HCPCS: 36415; 81001; 82040; 82043; 82306; 82310; 83540; 83735; 83970; 84100; 84156; 85027; 87086; 87088; 87186

== ENCOUNTER → 2021-08-12 08:13 | Outpatient (BNVA) | payer MEDICARE, SELFPAY | PROVIDERS: Visit Provider Nurse Practitioner Gerontology | DX: E11.65 Type 2 diabetes mellitus with hyperglycemia (principal); E11.42 Type 2 diabetes mellitus with diabetic polyneuropathy; E11.22 Type 2 diabetes mellitus with diabetic chronic kidney disease; I12.9 Hypertensive chronic kidney disease with stage 1 through stage 4 chronic kidney disease, or unspecified chronic kidney disease; N18.4 Chronic kidney disease, stage 4 (severe); E78.5 Hyperlipidemia, unspecified; E66.01 Morbid (severe) obesity due to excess calories; E55.9 Vitamin D deficiency, unspecified; Z68.34 Body mass index [BMI] 34.0-34.9, adult; Z79.4 Long term (current) use of insulin | CPT/HCPCS: 82947; 83036; 99212 ==

== ENCOUNTER 2021-08-15 08:27 | Outpatient (REF) | payer MEDICARE, SELFPAY ==
--- NOTE | ~2021-08-15 | MM_ITS ---
EXAMINATION: BONE DENSITOMETRY CLINICAL INDICATION: Menopause. COMPARISON: Previous BD dated 09/08/2018 and baseline BD dated 01/18/2007. TECHNIQUE: Using a [employer]i DXA System (software version: 13.1) manufactured by [employer] dual-energy x-ray absorptiometry was performed of the lumbar spine and left hip. The images are of good technical quality. Summary results are attached. FINDINGS: AP SPINE L1-L4: Current: BMD 1.081 g/cm2, Z-score 0.3, T-score -0.8, normal, 5.9% decrease from previous, 6.6% decrease from baseline (<5% change is not significant). Prior: BMD 1.149 g/cm2. Baseline: BMD 1.158 g/cm2. LEFT FEMUR, NECK: Current: BMD 0.748 g/cm2, Z-score -0.8, T-score -2.1, osteopenia. Prior: BMD 0.895 g/cm2. Baseline: BMD 0.896 g/cm2. LEFT FEMUR, TOTAL: Current: BMD 0.773 g/cm2, Z-score -0.9, T-score -1.9, osteopenia, 10.6% decrease from previous, 22.3% decrease from baseline (<5% change is not significant). Prior: BMD 0.865 g/cm2. Baseline: BMD 0.995 g/cm2. IDENTIFIED RISK FACTORS: Early menopause, history of fracture (adult), osteoporosis, rheumatoid arthritis, secondary osteoporosis. HISTORY OF FRACTURE: Humerus. MEDICATIONS: Vitamin D. MM/XR DEXA axial skeleton IMPRESSION: 1. DIAGNOSIS: Osteopenia based on the lowest T-score value of -2.1 in the femoral neck applying World Health Organization criteria. 2. 10-YEAR FRACTURE RISK PREDICTION, FRAX: Major osteoporotic fracture (clinical spine, forearm, hip or shoulder) 13.2%. Hip fracture 2.4%. 3. Treatment Recommendations: NOF guidelines recommend consideration for treatment in postmenopausal women and men age 50 and older presenting with the following: -A hip or vertebral (clinical or morphometric) fracture. -T-score less than or equal to -2.5 at the femoral neck or spine after appropriate evaluation to exclude secondary causes. -Low bone mass at the hip or spine and a 10-year fracture probability by FRAX of greater than or equal to 3% for hip fracture or greater than or equal to 20% for major osteoporotic fracture based on the [place] adapted WHO algorithm. 4. Other Recommendations: All treatment decisions require clinical judgment and consideration of individual patient factors, including patient preferences, comorbidities, previous drug use, risk factors not captured in the FRAX model (e.g. frailty, falls, vitamin D deficiency, increased bone turnover, interval significant decline in bone density) and possible under or overestimation of fracture risk by FRAX. Additional medical evaluation for secondary cause of low bone mineral density may be appropriate. FUTURE SCAN RECOMMENDATION: People with diagnosed cases of osteoporosis or at high risk for fracture should have regular bone mineral density tests. For patients eligible for Medicare, routine testing is allowed once every 2 years. The testing frequency can be increased to one year for patients who have rapidly progressing disease, those who are receiving or discontinuing medical therapy to restore bone mass, or have additional risk factors.
== END 2021-08-15 08:28 | disposition home or self-care (01) ==
LOC: HO.MAMMO 08:27
PROVIDERS: Visit Provider Internal Medicine Geriatric Medicine
DX: Z13.820 Encounter for screening for osteoporosis (principal); Z78.0 Asymptomatic menopausal state; M85.80 Other specified disorders of bone density and structure, unspecified site; Z79.899 Other long term (current) drug therapy
CPT/HCPCS: 77080

== ENCOUNTER → 2021-08-29 13:38 | Outpatient (BNVA) | payer OTHER, SELFPAY | PROVIDERS: PCP Internal Medicine Geriatric Medicine | DX: R39.15 Urgency of urination (principal) | CPT/HCPCS: 51798; 99212 ==

== ENCOUNTER 2021-09-25 18:43 | Emergency (ER) | payer OTHER, SELFPAY ==
[2021-09-25 18:49] VITALS: BP 174/52; PULSE 70; RESP 18; TEMP 36.1; O2SAT 97; BMI 32.8
--- NOTE | 2021-09-25 19:24 | PC.NURSE ---
Patient has a history of hemmorrhoids. Patient is unable to have the surgery so she is having spasms that are very painful and needs something to take the pain away because she is unable to sit.
== END 2021-09-25 19:56 | disposition home or self-care (01) ==
PROVIDERS: Emergency Provider Emergency Medicine Emergency Medical Services; PCP Internal Medicine Geriatric Medicine
DX: M62.838 Other muscle spasm (principal); K64.9 Unspecified hemorrhoids
CPT/HCPCS: 99283; 99284

== ENCOUNTER 2021-10-02 07:54 | Outpatient (REF) | payer OTHER, SELFPAY ==
[2021-10-02 08:21] LABS: MANUAL DIFF FLAG NO
[2021-10-02 08:43] LABS: Basophils Percent Auto 0.4 % (0-2); Eosinophils Absolute Auto 0.1 X10*3/uL (0.0-0.4); Hematocrit 33.4 % (37.0-47.0); Hemoglobin 10.3 g/dl (12.0-16.0); Imm Gran Abs Auto 0.01 X10*3/uL (0.00-0.03); Imm Gran Pct Auto 0.2 % (0.0-0.4); Lymphocytes Percent Auto 42.3 % (20-40); Mean Corpuscular HGB Conc 30.8 g/dl (31.0-35.0); Mean Corpuscular Hemoglobin 28.4 pg (27.0-33.0); Mean Platelet Volume 11.8 fL (9.4-12.3); Monocytes Absolute Auto 0.5 X10*3/uL (0.1-1.2); Monocytes Percent Auto 11.4 % (2-11); Neutrophils Percent Auto 42.7 % (45-73); Platelet Count 227 X10*3/uL (160-400); Red Blood Count 3.63 X10*6/uL (4.20-5.50); Red Cell Distribution Width 12.5 % (11.0-16.0); White Blood Count 4.6 X10*3/uL (4.8-10.8)
[2021-10-02 09:22] LABS: Anion Gap 13 (12-20); Blood Urea Nitrogen 68 mg/dL (9-16); Calcium 9.7 mg/dL (8.4-10.2); Carbon Dioxide 25 mmol/L (22-29); Chloride 110 mmol/L (96-108); Estimated Glomerular Filt Rate 21; Iron 71 mcg/dL (30-160); Percent Iron Saturation 32 % (15-50); Potassium 5.4 mmol/L (3.3-5.1); Sodium 143 mmol/L (135-145); Total Iron Binding Capacity 219 mcg/dL (228-428); Unsaturated Iron Binding 148 ug/dL
[2021-10-02 10:04] LABS: Appearance Urine CLEAR; Color Urine YELLOW; Glucose Urine UA >=1000 MG/DL (NEG); Leukocyte Esterase Urine 2+ (NEG); Nitrite Urine POS (NEG); Specific Gravity - Urine 1.015 (1.005-1.025); Urine Blood NEG (NEG); Urine Ketones NEG (NEG); Urine Protein NEG (NEG-TRACE)
[2021-10-02 10:23] LABS: Creatinine Urine 90.51 mg/dL; Microalbum/Creatinine Ratio Ur 100.5 ug/mg cr; Protein/Creatinine Ratio, Ur 0.23 (<0.2); Total Protein Urine Random 21 mg/dL (<12)
[2021-10-02 11:12] LABS: Bacteria Urine 4+ /LPF; RBC Urine 0 /HPF (0); Renal Epithelial Cells Urine TRACE /LPF; Squamous Epithelial Cell Urine 1+ /LPF; WBC Clumps Urine NOTED; WBC Urine 30-49 /HPF (0-4)
== END 2021-10-02 07:55 | disposition home or self-care (01) ==
LOC: HO.LAB 07:54
PROVIDERS: PCP Internal Medicine Geriatric Medicine; Visit Provider Internal Medicine Nephrology
DX: I12.9 Hypertensive chronic kidney disease with stage 1 through stage 4 chronic kidney disease, or unspecified chronic kidney disease (principal); N18.4 Chronic kidney disease, stage 4 (severe); E11.22 Type 2 diabetes mellitus with diabetic chronic kidney disease
CPT/HCPCS: 36415; 80051; 81001; 81003; 82043; 82310; 82565; 83540; 84156; 84520; 85025

== ENCOUNTER → 2021-10-09 13:29 | Outpatient (BNVA) | payer OTHER, SELFPAY | PROVIDERS: Visit Provider Surgery | DX: K64.8 Other hemorrhoids (principal) | CPT/HCPCS: 46600; 99202 ==

== ENCOUNTER 2021-11-19 08:44 | Outpatient (REF) | payer OTHER, SELFPAY ==
[2021-11-19 10:55] LABS: Alanine Aminotransferase 13 U/L (0-31); Albumin Level 3.8 g/dL (3.5-5.0); Alkaline Phosphatase 145 U/L (39-117); Aspartate Amino Transferase 17 U/L (5-31); Bilirubin Direct 0.2 mg/dL (0.0-0.5); Bilirubin Total 0.4 mg/dL (0.0-1.0); Cholesterol 128 mg/dL; HDL Cholesterol 29 mg/dL; LDL Cholesterol Calculated 52 mg/dl; Triglycerides 235 mg/dL
[2021-11-19 11:06] LABS: TSH reflex Free T4 2.18 uIU/mL (0.32-4.0)
== END 2021-11-19 08:45 | disposition home or self-care (01) ==
LOC: HO.10HDL 08:44
PROVIDERS: Visit Provider Internal Medicine Geriatric Medicine
DX: E03.9 Hypothyroidism, unspecified (principal); E11.9 Type 2 diabetes mellitus without complications; Z79.899 Other long term (current) drug therapy
CPT/HCPCS: 36415; 80061; 80076; 84443

== ENCOUNTER → 2021-11-28 10:58 | Outpatient (BNVA) | payer OTHER, SELFPAY | PROVIDERS: PCP Internal Medicine Geriatric Medicine | DX: N32.81 Overactive bladder (principal); Z79.899 Other long term (current) drug therapy | CPT/HCPCS: 51798; 99212 ==

== ENCOUNTER 2022-02-05 08:56 | Outpatient (REF) | payer OTHER, SELFPAY ==
[2022-02-05 10:35] LABS: Appearance Urine Cloudy; Color Urine Yellow; Glucose Urine UA Negative (Negative); Leukocyte Esterase Urine Large (3+) (Negative); Nitrite Urine Positive (Negative); PH 5.5 (5.0-9.0); Specific Gravity - Urine 1.015 (1.005-1.025); UMIC TRIGGER UA YES; Urine Blood Negative (Negative); Urine Ketones Negative (Negative); Urine Protein 30 (1+) mg/dL (Neg-Trace)
[2022-02-05 10:40] LABS: Bacteria Urine 4+ (None Seen); RBC Urine 0-2 /HPF (0-2); WBC Urine >50 /HPF (0-5)
[2022-02-05 11:12] LABS: Hematocrit 35.4 % (37.0-47.0); Mean Corpuscular HGB Conc 31.1 g/dl (31.0-35.0); Mean Corpuscular Hemoglobin 28.2 pg (27.0-33.0); Mean Corpuscular Volume 90.8 fL (80.0-98.0); Mean Platelet Volume 13.2 fL (9.4-12.3); Platelet Count 192 X10*3/uL (160-400); White Blood Count 5.7 X10*3/uL (4.8-10.8)
[2022-02-05 11:18] LABS: Creatinine Urine 99.08 mg/dL; Protein/Creatinine Ratio, Ur 0.29 (<0.2); Total Protein Urine Random 29 mg/dL (<12)
[2022-02-05 11:22] LABS: Albumin Level 3.9 g/dL (3.5-5.0); Anion Gap 15 (12-20); Blood Urea Nitrogen 62 mg/dL (9-16); Calcium 9.8 mg/dL (8.4-10.2); Carbon Dioxide 26 mmol/L (22-29); Chloride 106 mmol/L (96-108); Estimated Glomerular Filt Rate 23; Iron 64 mcg/dL (30-160); Magnesium 2.1 mg/dL (1.6-2.6); Percent Iron Saturation 28 % (15-50); Phosphorus 4.1 mg/dL (2.7-4.5); Potassium 5.3 mmol/L (3.3-5.1); Sodium 142 mmol/L (135-145); Total Iron Binding Capacity 228 mcg/dL (228-428); Unsaturated Iron Binding 164 ug/dL
[2022-02-05 11:42] LABS: Vitamin D 25-OH Total 49.4 ng/mL (>30)
[2022-02-08 13:16] LABS: Calcium (PTHI) 9.7 mg/dL (8.6-10.4); PTHI 51 pg/mL (16-77)
== END 2022-02-05 08:57 | disposition home or self-care (01) ==
LOC: HO.10HDL 08:56
PROVIDERS: Visit Provider Internal Medicine Nephrology
DX: N18.4 Chronic kidney disease, stage 4 (severe) (principal); E11.22 Type 2 diabetes mellitus with diabetic chronic kidney disease; N25.0 Renal osteodystrophy; R80.1 Persistent proteinuria, unspecified; D63.1 Anemia in chronic kidney disease
CPT/HCPCS: 36415; 80051; 81001; 82040; 82306; 82310; 82565; 83540; 83735; 83970; 84100; 84156; 84520; 85027; 87086; 87088; 87186

== ENCOUNTER 2022-04-08 07:55 | Outpatient (REF) | payer OTHER, SELFPAY ==
--- NOTE | ~2022-04-08 | MM_ITS ---
EXAMINATION: MM SCREENING DIGITAL BREAST TOMOSYNTHESIS, BILATERAL CLINICAL INFORMATION: Screening. Asymptomatic. Prior right breast surgical biopsy, 2012. COMPARISON: Mammography: 03/26/2021, 03/13/2020, 03/08/2019 TECHNIQUE: Digital breast tomosynthesis is performed in both the craniocaudal and mediolateral oblique views along with computer-aided detection (CAD). Synthesized 2D images are generated from the tomosynthesis. FINDINGS: There are scattered areas of fibroglandular density (ACR BI-RADS breast composition Category b). There are no significant masses, abnormal calcifications, or other abnormalities. Parenchymal pattern is similar to prior studies. There is minor scarring anterior outer right breast consistent with the prior surgery. There is no developing density or interval architectural abnormality. There is a benign stable oval nodule with associated bulky calcification posterior 3:00 left breast likely degenerating fibroadenoma. There are scattered bilateral ductal secretory, round, and vascular calcifications again seen. Benign grouped coarse calcifications again present central mid right breast. The axilla are unremarkable. No significant changes. MM/MM tomosynthesis screening BI IMPRESSION: No mammographic evidence of malignancy. ASSESSMENT: BI-RADS 2: Benign RECOMMENDATION: Routine annual mammography screening. This patient's information was entered into a reminder system with a target due date for their next mammogram.
== END 2022-04-08 07:56 | disposition home or self-care (01) ==
LOC: HO.MAMMO 07:55
PROVIDERS: PCP Internal Medicine Geriatric Medicine; Visit Provider Internal Medicine Geriatric Medicine
DX: Z12.31 Encounter for screening mammogram for malignant neoplasm of breast (principal)
CPT/HCPCS: 77063; 77067

== ENCOUNTER 2022-11-27 07:37 | Outpatient (REF) | payer OTHER, SELFPAY ==
[2022-11-27 11:25] LABS: Anion Gap 15 (12-20); Blood Urea Nitrogen 78 mg/dL (9-16); Calcium 9.9 mg/dL (8.4-10.2); Carbon Dioxide 25 mmol/L (22-29); Chloride 108 mmol/L (96-108); Estimated Glomerular Filt Rate 18; Glucose Random 133 mg/dL (60-115); Potassium 5.3 mmol/L (3.3-5.1); Sodium 143 mmol/L (135-145)
== END 2022-11-27 07:38 | disposition home or self-care (01) ==
LOC: HO.10HDL 07:37
PROVIDERS: Visit Provider Internal Medicine Geriatric Medicine
DX: N18.4 Chronic kidney disease, stage 4 (severe) (principal)
CPT/HCPCS: 36415; 80048

== ENCOUNTER 2022-12-14 08:34 | Outpatient (REF) | payer OTHER, SELFPAY ==
[2022-12-14 11:53] LABS: Estimated Average Glucose 126 mg/dL
[2022-12-14 11:59] LABS: Anion Gap 12 (12-20); Blood Urea Nitrogen 69 mg/dL (9-16); Calcium 9.7 mg/dL (8.4-10.2); Carbon Dioxide 27 mmol/L (22-29); Chloride 111 mmol/L (96-108); Estimated Glomerular Filt Rate 25; Glucose Random 102 mg/dL (60-115); Sodium 145 mmol/L (135-145)
== END 2022-12-14 08:35 | disposition home or self-care (01) ==
LOC: HO.HHCL 08:34
PROVIDERS: Visit Provider Internal Medicine Geriatric Medicine
DX: D64.9 Anemia, unspecified (principal); E78.5 Hyperlipidemia, unspecified; E11.22 Type 2 diabetes mellitus with diabetic chronic kidney disease; N18.9 Chronic kidney disease, unspecified; Z79.4 Long term (current) use of insulin
CPT/HCPCS: 36415; 80048; 83036

== ENCOUNTER 2023-04-14 07:17 | Outpatient (REF) | payer OTHER, SELFPAY ==
--- NOTE | ~2023-04-14 | MM_ITS ---
EXAMINATION: MM SCREENING DIGITAL BREAST TOMOSYNTHESIS, BILATERAL CLINICAL INFORMATION: Screening. Asymptomatic. The patient has a history of prior benign excisional biopsies of the right breast. COMPARISON: Mammography: This study is compared with prior exams dating back to 2018. TECHNIQUE: Digital breast tomosynthesis is performed in both the craniocaudal and mediolateral oblique views along with computer-aided detection (CAD). Synthesized 2D images are generated from the tomosynthesis. FINDINGS: The breasts are almost entirely fatty (ACR BI-RADS breast composition Category a). There are no significant masses, abnormal calcifications, or other abnormalities. There are architectural changes in the superior aspect of the right breast from prior surgery. There are bilateral coarse calcifications are present above involuting fibroadenomata. MM/MM tomosynthesis screening BI IMPRESSION: No mammographic evidence of malignancy. ASSESSMENT: BI-RADS BI-RADS 2 - Benign Findings RECOMMENDATION: Routine annual mammography screening. 1 year F/U This examination should not preclude the clinical evaluation of a suspicious palpable abnormality. This patient's information was entered into a reminder system with a target due date for their next mammogram.
== END 2023-04-14 07:18 | disposition home or self-care (01) ==
LOC: HO.MAMMO 07:17
PROVIDERS: Visit Provider Internal Medicine Geriatric Medicine
DX: Z12.31 Encounter for screening mammogram for malignant neoplasm of breast (principal)
CPT/HCPCS: 77063; 77067

== ENCOUNTER → 2023-04-14 08:00 | Outpatient (BNV) | payer OTHER, SELFPAY | PROVIDERS: Visit Provider Radiology Diagnostic Radiology | DX: Z12.31 Encounter for screening mammogram for malignant neoplasm of breast (principal) | CPT/HCPCS: 77063; 77067 ==

== ENCOUNTER 2023-05-03 09:54 | Outpatient (AMB) | payer OTHER, SELFPAY ==
--- NOTE | 2023-05-03 10:03 | A.OFFVIS_ITS ---
Intake Intake Visit Reasons: Incontinence- follow up (rahul garrett 2021) Intake Note: Patient is present for follow up overactive bladder Urology Medications: myrbetriq (not currently taking) Blood Thinner: none PVR: 79ml's Used [employer] Porter Required: Yes [employer] Name: JANAY COKERSophiaKUMAR Accompanied by: Self / Same As Patient Allergies No Known Allergies Allergy (Verified 05/03/23 10:26) Medication List - Last Reconciled 05/03/23 by RICK Trujillo- albuterol sulfate 90 mcg/actuation 0 mcg inhalation alirocumab (Praluent Pen) 75 mg subcut Q2W amlodipine 5 mg PO DAILY blood sugar diagnostic As directed cetirizine (Zyrtec) 10 mg PO DAILY cholecalciferol (vitamin D3) 50 mcg PO DAILY cholecalciferol (vitamin D3) 25 mcg PO QAM dapagliflozin propanediol (Farxiga) 10 mg PO DAILY dibucaine 1% 1 appl PA TID diphenhydramine-zinc acetate 2-0.1 % (Benadryl Itch Cooling) 1 spray topical TID PRN ezetimibe TAKE 1 TABLET BY MOUTH AT BEDTIME famotidine 20 mg PO BEDTIME flash glucose scanning reader ([employer] Juanita 14 Day Lillian) As directed flash glucose sensor ([employer] Juanita 14 Day Sensor kit) 1 ea topical Q2W furosemide 60 mg PO BID hydralazine 25 mg PO BID hydrocortisone 2.5% (Proctozone-HC) 1 appl PA TID insulin aspart U-100 (Novolog FlexPen U-100 Insulin aspart) 2 - 8 units (0.02 - 0.08 mL) subcut TID 90 days insulin glargine (Lantus Solostar U-100 Insulin) 18 units (0.18 mL) subcut QPM lancets As directed levothyroxine 75 mcg PO DAILY metoprolol tartrate 25 mg PO DAILY mirabegron ER (Myrbetriq) 25 mg PO DAILY 30 days pen needle, diabetic As directed pen needle, diabetic (BD Ultra-Fine Maria E Pen Needle) As directed four times a day pioglitazone 15 mg PO QAM psyllium husk (with sugar) 3.4 gram/12 gram (Metamucil (with sugar)) 1 tbsp PO BID rosuvastatin 5 mg PO DAILY valsartan 320 mg PO QAM HPI HPI Comments History of Present Illness Details Kely is a very pleasant 67-year-old Kenyan-speaking female patient of Dr. Hayes. She has a past medical history of hemorrhoids, type 2 diabetes, vitamin-D deficiency, asthma, allergic rhinitis, hypothyroidism, obesity, anemia of chronic diseases, chronic kidney disease stage 4, hypertension, and hyperlipidemia. She presents to the office today as a new patient for ongoing lower urinary tract symptoms. In discussion with the patient today she reports to be doing and feeling well. She reports previously following up here with Trish MAURER in the past for lower urinary tract symptoms of urinary urgency, urinary frequency, and episodes of incontinence if not near a bathroom. She reports having been on a medication prior that she felt was extremely helpful however has not been on any urological medications for quite some time as she has not followed-up and ran out of refills. In review of patient's chart it appears last medication prescribed Myrbetriq 25 mg daily. She otherwise denies nocturia, hematuria, dysuria, foul smelling urine, changes to urinary stream, flank pain, fever, and or chills. In office urinalysis results reviewed with the patient today. When asked she does report to be following up with Nephrology Dr. Castillo. Discussed obtaining retroperitoneal ultrasound for further assessment evaluation. PVR 79 mL. Discussed attempting pelvic floor therapy however patient declines at this time. She otherwise offers no other issues or concerns at this time. [facility] Medical History Hemorrhoids with complication Hemorrhoid Type 2 diabetes mellitus with diabetic polyneuropathy Vitamin D deficiency Urgency of micturition Urge incontinence Asthma Allergic rhinitis Hypothyroidism Obesity Anemia of chronic disease Type 2 diabetes mellitus with hyperglycemia, with long-term current use of insulin Type 2 diabetes mellitus with chronic kidney disease Chronic kidney disease, stage 4 (severe) Essential hypertension Hyperlipidemia LDL goal <70 Surgical History Hx of cholecystectomy History of breast lump/mass excision Family History Father CVD (cardiovascular disease) Mother Diabetes Social History Household Members: Spouse Alcohol intake: never Patient Tobacco Use Status: Never used Tobacco Review of Systems Const Reports as per [facility] Eyes Reports no additional complaints ENT Reports no additional complaints Card Reports as per [facility] Resp Reports as per [facility] GI Reports as per [facility] Reports as per [facility] Musc Reports no additional complaints Neuro Reports no additional complaints Psych Reports no additional complaints Endo Reports as per [facility] Rich/Lymph Reports as per [facility] Aller/Immun Reports as per [facility] Physical Exam Const General: cooperative, healthy appearing, comfortable, no acute distress, well developed, alert and awake Nutritional Appearance: overweight Orientation/consciousness: patient oriented x3 Limitations: no limitations HEENT Head: Yes normal to inspection, Yes normocephalic and Yes atraumatic Ears: hearing grossly normal bilaterally Eyes General: appearance normal, both eyes and all related structures Neck Neck: Yes normal visual inspection and Yes trachea midline Chest Chest palpation & inspection: normal inspection of the chest Resp Effort & Inspection: normal respiratory effort and able to speak in complete sentences Cardio Rate: regular rate GI Inspection: Yes normal to inspection General: Yes no CVA tenderness Back/Spine/Pelvis Back: no CVA tenderness Skin General skin exam: no rashes or lesions noted Neuro General: patient oriented x3 Extrem General: Yes normal to inspection Psych Appearance: grossly normal and well kempt Mental Status: mental status grossly normal Speech and movement: Normal speech and movement present and Clear speech present Affect: normal affect Attitude: cooperative Thought process: Normal thought process present Thought content: Normal thought content present Insight: Fair insight present (Psych) Judgement: Fair judgement present (Psych) Office Procedures Post Void Residual Post Residual Void Post Void Residual (PVR): 79 [id number]-[id number] Void Residual by ultrasound Results AMB Urinalysis, Automated UA Leukoctes 125 Karlos/uL Last Edit by Kiya Guthrie on 05/03/23 10:19 UA Nitrite Negative Last Edit by Kiya Guthrie on 05/03/23 10:19 UA Urobilinogen 0.2 mg/dL Last Edit by Kiya Guthrie on 05/03/23 10:19 UA Protein 100 mg/dL Last Edit by Kiya Guthrie on 05/03/23 10:19 UA pH 5.5 Last Edit by Kiya Guthrie on 05/03/23 10:19 UA Blood 0 Clyde/uL Last Edit by Kiya Guthrie on 05/03/23 10:19 UA Specific Perrin 1.020 Last Edit by Kiya Guthrie on 05/03/23 10:19 UA Ketone Negative Last Edit by Kiya Guthrie on 05/03/23 10:19 UA Bilirubin 0 mg/dL Last Edit by Kiya Guthrie on 05/03/23 10:19 UA Glucose 100 mg/dL Last Edit by Kiya Guthrie on 05/03/23 10:19 Results Reviewed Results Reviewed: Laboratory Last Values Urine pH (Auto) 5.5 05/03/23 10:11 Specific Perrin (Auto) 1.020 05/03/23 10:11 Urine Protein (Auto) 100 mg/dL 05/03/23 10:11 Glucose (UA)(Auto) 100 mg/dL 05/03/23 10:11 Urine Ketones (Auto) Negative 05/03/23 10:11 Urine Blood (Auto) 0 Clyde/uL 05/03/23 10:11 Urine Nitrite (Auto) Negative 05/03/23 10:11 Urine Bilirubin (Auto) 0 mg/dL 05/03/23 10:11 Urine Urobilinogen (Auto) 0.2 mg/dL 05/03/23 10:11 Leukocyte Esterase (Auto) 125 Karlos/uL 05/03/23 10:11 Assessment & Plan Assessment & Plan (1) Lower urinary tract symptoms: Code(s): R39.9 - Unspecified symptoms and signs involving the genitourinary system (2) Urgency of micturition: Code(s): R39.15 - Urgency of urination (3) Urge incontinence: Code(s): N39.41 - Urge incontinence Plan In office urinalysis results reviewed with the patient today; as noted above. PVR 79 mL. Discussed at length potential causes for lower urinary tract symptoms patient has been experiencing. Start Myrbetriq as discussed and prescribed. Will obtain retroperitoneal ultrasound for further assessment evaluation. Discussed and stressed the importance of managing diabetes for improvement in lower urinary tract symptoms as well as overall health and well-being. Discussed and stressed the importance of managing constipation for improvement lower urinary tract symptoms as well as overall health and well-being. Discussed, educated, and stressed the importance of drinking plenty of water daily. Follow-up in 6 weeks with imaging to be completed prior; or sooner with any issues, concerns, and or questions. Orders: Orders AMB Urinalysis Automated Today Z13.9 - Encounter for screening, unspecified AMB Post Void Residual by ultrasound Today R39.15 - Urgency of urination US retroperitoneal comp Today N39.41 - Urge incontinence, R39.15 - Urgency of urination, R39.9 - Unspecified symptoms and signs involving the genitourinary system Medications: Changed From mirabegron ER (Myrbetriq) 25 mg PO DAILY 30 days 90 tabs 3RF R39.15 - Urgency of urination To mirabegron ER (Myrbetriq) 25 mg PO DAILY 90 tabs 0RF 90 days R39.15 - Urgency of urination Patient Instructions: The patient had an opportunity to ask questions regarding the treatment plan. A ll questions were answered. Physical exam, labs, and imaging were discussed and reviewed in detail. As well as risks, benefits, and discussion of treatment choices. No major barriers to understanding were identified. The patient expressed understanding and agreement with the above treatment plan. The patient was made aware they should contact our office by phone for worsening of their current condition, the appearance of new symptoms, or with any questions or concerns. Compliance is encouraged with any medications and follow up testing that is ordered. It is a privilege to be allowed the opportunity to participate in? your urological care.? Again, if you have any questions or concerns If you have any questions or concerns please do not hesitate to contact me. The office is [phone]. This note is constructed using voice recognition software. While every effort has been made to ensure accuracy window and siding craftsman errors may have been included. Yours sincerely, SEEMA Trujillo Coding Level of Care Code Est Pt Level 4 (81359) Diagnoses Lower urinary tract symptoms R39.9 Urgency of micturition R39.15 Urge incontinence N39.41 CPT Codes Post Residual Void - PVR CPT Code: 71036-Sast Void Residual by ultrasound ([id number])
== END 2023-05-03 10:31 | disposition home or self-care (01) ==
PROVIDERS: PCP Internal Medicine Geriatric Medicine; Visit Provider Nurse Practitioner Family
DX: R39.9 Unspecified symptoms and signs involving the genitourinary system (principal); N39.41 Urge incontinence; Z13.9 Encounter for screening, unspecified
CPT/HCPCS: 99214

== ENCOUNTER → 2023-05-03 09:54 | Outpatient (BNVA) | payer OTHER, SELFPAY | PROVIDERS: PCP Internal Medicine Geriatric Medicine; Visit Provider Nurse Practitioner Family | DX: N39.41 Urge incontinence (principal); R39.9 Unspecified symptoms and signs involving the genitourinary system; R39.15 Urgency of urination | CPT/HCPCS: 51798; 81003; 99212 ==

== ENCOUNTER 2023-06-03 11:43 | Outpatient (REF) | payer OTHER, SELFPAY ==
[2023-06-03 13:31] LABS: Anion Gap 11 (12-20); Blood Urea Nitrogen 57 mg/dL (9-16); Calcium 9.9 mg/dL (8.4-10.2); Carbon Dioxide 28 mmol/L (22-29); Chloride 110 mmol/L (96-108); Estimated Glomerular Filt Rate 29; Glucose Random 136 mg/dL (60-115); Potassium 5.1 mmol/L (3.3-5.1); Sodium 144 mmol/L (135-145)
== END 2023-06-03 11:44 | disposition home or self-care (01) ==
LOC: HO.HHCL 11:43
PROVIDERS: Visit Provider Internal Medicine Geriatric Medicine
DX: I12.9 Hypertensive chronic kidney disease with stage 1 through stage 4 chronic kidney disease, or unspecified chronic kidney disease (principal); N18.4 Chronic kidney disease, stage 4 (severe)
CPT/HCPCS: 36415; 80048

== ENCOUNTER 2023-06-25 08:48 | Outpatient (REF) | payer OTHER, SELFPAY ==
[2023-06-25 10:48] LABS: MANUAL DIFF FLAG NO
[2023-06-25 10:58] LABS: Basophils Percent Auto 0.7 % (0-2); Eosinophils Absolute Auto 0.2 X10*3/uL (0.0-0.4); Eosinophils Percent Auto 2.9 % (0-4); Hematocrit 32.5 % (37.0-47.0); Hemoglobin 10.4 g/dl (12.0-16.0); Imm Gran Abs Auto 0.01 X10*3/uL (0.00-0.03); Imm Gran Pct Auto 0.2 % (0.0-0.4); Lymphocytes Percent Auto 36.3 % (20-40); Mean Corpuscular Hemoglobin 28.7 pg (27.0-33.0); Mean Corpuscular Volume 89.8 fL (80.0-98.0); Mean Platelet Volume 12.5 fL (9.4-12.3); Monocytes Absolute Auto 0.6 X10*3/uL (0.1-1.2); Monocytes Percent Auto 9.9 % (2-11); Neutrophils Absolute Auto 2.8 x10*3/uL (2.0-8.3); Platelet Count 240 X10*3/uL (160-400); Red Blood Count 3.62 X10*6/uL (4.20-5.50); Red Cell Distribution Width 13.4 % (11.0-16.0); White Blood Count 5.5 X10*3/uL (4.8-10.8)
[2023-06-25 11:10] LABS: Albumin Level 3.4 g/dL (3.5-5.0); Anion Gap 12 (12-20); Blood Urea Nitrogen 56 mg/dL (9-16); Calcium 8.9 mg/dL (8.4-10.2); Carbon Dioxide 26 mmol/L (22-29); Chloride 108 mmol/L (96-108); Estimated Glomerular Filt Rate 25; Magnesium 2.3 mg/dL (1.6-2.6); Phosphorus 3.7 mg/dL (2.7-4.5); Potassium 4.8 mmol/L (3.3-5.1); Sodium 141 mmol/L (135-145)
[2023-06-25 11:20] LABS: Parathyroid Hormone Intact 112.1 pg/mL (8.7-77.1)
[2023-06-25 11:25] LABS: Vitamin D 25-OH Total 33.5 ng/mL (>30)
[2023-06-25 11:32] LABS: Appearance Urine Clear; Color Urine Yellow; Glucose Urine UA Negative (Negative); Leukocyte Esterase Urine Small (1+) (Negative); Nitrite Urine Positive (Negative); PH 5.5 (5.0-9.0); Specific Gravity - Urine 1.015 (1.005-1.025); UMIC TRIGGER UA YES; Urine Blood Negative (Negative); Urine Ketones Negative (Negative); Urine Protein 300 (3+) mg/dL (Neg-Trace)
[2023-06-25 11:36] LABS: Creatinine Urine 102.14 mg/dL; Protein/Creatinine Ratio, Ur 1.64 (<0.2); Total Protein Urine Random 168 mg/dL (<12)
[2023-06-25 11:39] LABS: Bacteria Urine 1+ (None Seen); RBC Urine 0-2 /HPF (0-2); WBC Urine 21-50 /HPF (0-5)
[2023-06-25 11:45] LABS: Microalbum/Creatinine Ratio Ur 1085.7 ug/mg cr (<30)
== END 2023-06-25 08:49 | disposition home or self-care (01) ==
LOC: HO.10HDL 08:48
PROVIDERS: Visit Provider Internal Medicine Nephrology
DX: N18.4 Chronic kidney disease, stage 4 (severe) (principal); D63.1 Anemia in chronic kidney disease; E11.29 Type 2 diabetes mellitus with other diabetic kidney complication; N25.0 Renal osteodystrophy; R80.1 Persistent proteinuria, unspecified
CPT/HCPCS: 36415; 80051; 81001; 82040; 82043; 82306; 82310; 82565; 82570; 83735; 83970; 84100; 84156; 84520; 85025

== ENCOUNTER 2023-10-06 08:11 | Outpatient (REF) | payer OTHER, SELFPAY ==
[2023-10-06 10:53] LABS: MANUAL DIFF FLAG NO
[2023-10-06 11:03] LABS: Basophils Percent Auto 0.7 % (0-2); Eosinophils Absolute Auto 0.2 X10*3/uL (0.0-0.4); Eosinophils Percent Auto 2.6 % (0-4); Hematocrit 33.8 % (37.0-47.0); Hemoglobin 10.6 g/dl (12.0-16.0); Imm Gran Abs Auto 0.01 X10*3/uL (0.00-0.03); Imm Gran Pct Auto 0.2 % (0.0-0.4); Lymphocytes Percent Auto 35.7 % (20-40); Mean Corpuscular HGB Conc 31.4 g/dl (31.0-35.0); Mean Corpuscular Hemoglobin 28.3 pg (27.0-33.0); Mean Corpuscular Volume 90.1 fL (80.0-98.0); Mean Platelet Volume 12.7 fL (9.4-12.3); Monocytes Absolute Auto 0.6 X10*3/uL (0.1-1.2); Monocytes Percent Auto 11.2 % (2-11); Neutrophils Absolute Auto 2.8 x10*3/uL (2.0-8.3); Neutrophils Percent Auto 49.6 % (45-73); Platelet Count 254 X10*3/uL (160-400); Red Blood Count 3.75 X10*6/uL (4.20-5.50); Red Cell Distribution Width 13.6 % (11.0-16.0); White Blood Count 5.7 X10*3/uL (4.8-10.8)
[2023-10-06 11:13] LABS: Appearance Urine Cloudy; Color Urine Yellow; Glucose Urine UA 500 mg/dL (Negative); Leukocyte Esterase Urine Moderate (2+) (Negative); Nitrite Urine Positive (Negative); Specific Gravity - Urine 1.015 (1.005-1.025); UMIC TRIGGER UA YES; Urine Blood Negative (Negative); Urine Ketones Negative (Negative); Urine Protein 100 (2+) mg/dL (Neg-Trace)
[2023-10-06 11:16] LABS: Bacteria Urine 4+ (None Seen); RBC Urine 0-2 /HPF (0-2); WBC Urine >50 /HPF (0-5)
[2023-10-06 11:33] LABS: Albumin Level 3.5 g/dL (3.5-5.0); Anion Gap 13 (12-20); Blood Urea Nitrogen 50 mg/dL (9-16); Calcium 9.2 mg/dL (8.4-10.2); Carbon Dioxide 27 mmol/L (22-29); Chloride 110 mmol/L (96-108); Estimated Glomerular Filt Rate 21; Magnesium 2.3 mg/dL (1.6-2.6); Phosphorus 4.1 mg/dL (2.7-4.5); Potassium 4.9 mmol/L (3.3-5.1); Sodium 145 mmol/L (135-145)
[2023-10-06 11:51] LABS: Vitamin D 25-OH Total 34.1 ng/mL (>30)
[2023-10-06 11:59] LABS: Parathyroid Hormone Intact 181.5 pg/mL (8.7-77.1)
[2023-10-06 12:05] LABS: Creatinine Urine 120.28 mg/dL; Protein/Creatinine Ratio, Ur 0.87 (<0.2); Total Protein Urine Random 105 mg/dL (<12)
[2023-10-06 12:17] LABS: Microalbum/Creatinine Ratio Ur 567.8 ug/mg cr (<30)
== END 2023-10-06 08:12 | disposition home or self-care (01) ==
LOC: HO.10HDL 08:11
PROVIDERS: Visit Provider Internal Medicine Nephrology
DX: E11.22 Type 2 diabetes mellitus with diabetic chronic kidney disease (principal); N18.4 Chronic kidney disease, stage 4 (severe); N25.0 Renal osteodystrophy; R80.1 Persistent proteinuria, unspecified
CPT/HCPCS: 36415; 80051; 81001; 82040; 82043; 82306; 82310; 82565; 82570; 83735; 83970; 84100; 84156; 84520; 85025

== ENCOUNTER 2023-10-28 15:27 | Outpatient (AMB) | payer OTHER, SELFPAY ==
--- NOTE | 2023-10-28 15:35 | A.OFFVIS_ITS ---
Intake Visit Reasons: Follow-up Intake Note: Patient is present for follow up overactive bladder Urology Medications: Myrbetriq Allergies to Antibiotic- No Known Allergies Blood Thinner: none PVR: 0 mL Fiber Picker Required: Yes Fiber Picker Name: JANAY [facility] Information Interpreted: non-clinical only Accompanied by: Self / Same As Patient Allergies No Known Allergies Allergy (Verified 05/03/23 10:26) HPI Comments Details: 10/28/23--Kely is a 68 year old female being followed for OAB symptoms. CoMorbidity - Diabetes. She was last seen by ERASTO Nicholson 05/03/23 and was prescribed Myrbetriq 25 mg daily. She states the medication works well. She has run out of refills. Certified phosphoric acid operator present. She denies irritative voiding symptoms however urine is nitrite positive. I will hold on antibiotics pending urine culture. Review of chart: 05/03/23--Kely is a very pleasant 67-year-old Palauan-speaking female. She has a past medical history of hemorrhoids, type 2 diabetes, vitamin-D deficiency, asthma, allergic rhinitis, hypothyroidism, obesity, anemia of chronic diseases, chronic kidney disease stage 4, hypertension, and hyperlipidemia. She presents to the office today as a new patient for ongoing lower urinary tract symptoms. In discussion with the patient today she reports to be doing and feeling well. She reports previously following up here with Trish MAURER in the past for lower urinary tract symptoms of urinary urgency, urinary frequency, and episodes of incontinence if not near a bathroom. She reports having been on a medication prior that she felt was extremely helpful however has not been on any urological medications for quite some time as she has not followed-up and ran out of refills. In review of patient's chart it appears last medication prescribed Myrbetriq 25 mg daily. She otherwise denies nocturia, hematuria, dysuria, foul smelling urine, changes to urinary stream, flank pain, fever, and or chills. In office urinalysis results reviewed with the patient today. When asked she does report to be following up with Nephrology Dr. Castillo. Discussed obtaining retroperitoneal ultrasound for further assessment evaluation. PVR 79 mL. Discussed attempting pelvic floor therapy however patient declines at this time. She otherwise offers no other issues or concerns at this time. [facility] Medical History Hemorrhoids with complication Hemorrhoid Type 2 diabetes mellitus with diabetic polyneuropathy Vitamin D deficiency Urgency of micturition Urge incontinence Asthma Allergic rhinitis Hypothyroidism Obesity Anemia of chronic disease Type 2 diabetes mellitus with hyperglycemia, with long-term current use of insulin Type 2 diabetes mellitus with chronic kidney disease Chronic kidney disease, stage 4 (severe) Essential hypertension Hyperlipidemia LDL goal <70 Surgical History Hx of cholecystectomy History of breast lump/mass excision Family History Father CVD (cardiovascular disease) Mother Diabetes Social History Household Members: Spouse Alcohol intake: never Patient Tobacco Use Status: Never used Tobacco Review of Systems Const All systems reviewed & are unremarkable except as noted in HPI and below Reports no additional complaints Eyes Reports no additional complaints ENT Reports no additional complaints Card Reports no additional complaints Resp Reports no additional complaints GI Reports no additional complaints Reports as per HPI Musc Reports no additional complaints Skin/Breast Reports system reviewed and no additional complaints, except as documented Neuro Reports no additional complaints Psych Reports no additional complaints Endo Reports no additional complaints Rich/Lymph Reports no additional complaints Aller/Immun Reports no additional complaints Office Procedures Post Void Residual Post Residual Void Post Void Residual (PVR): 0 56210-Eeqp Void Residual by ultrasound Results AMB Urinalysis, Automated UA Leukoctes 70 Karlos/uL Last Edit by DOMINICK Peñaloza on 10/28/23 15:58 1+ Janay Laws 10/28/23 15:58 UA Nitrite Positive Last Edit by DOMINICK Peñaloza on 10/28/23 15:58 UA Urobilinogen 0.2 mg/dL Last Edit by DOMINICK Peñaloza on 10/28/23 15:5 8 UA Protein 100 mg/dL Last Edit by DOMINICK Peñaloza on 10/28/23 15:58 2+ Janay Laws 10/28/23 15:58 UA pH 6.0 Last Edit by DOMINICK Peñaloza on 10/28/23 15:58 UA Blood 0 Clyde/uL Last Edit by DOMINICK Peñaloza on 10/28/23 15:58 UA Specific Guin 1.015 Last Edit by Janay Laws A on 10/28/23 15: 58 UA Ketone Negative Last Edit by DOMINICK Peñaloza on 10/28/23 15:58 UA Bilirubin 0 mg/dL Last Edit by NINO PeñalozaA on 10/28/23 15:58 UA Glucose 100 mg/dL Last Edit by DOMINICK Peñaloza on 10/28/23 15:58 Results Reviewed Results Reviewed: Laboratory Last Values Urine pH (Auto) 6.0 10/28/23 15:38 Specific Guin (Auto) 1.015 10/28/23 15:38 Urine Protein (Auto) 100 mg/dL 10/28/23 15:38 Glucose (UA)(Auto) 100 mg/dL 10/28/23 15:38 Urine Ketones (Auto) Negative 10/28/23 15:38 Urine Blood (Auto) 0 Clyde/uL 10/28/23 15:38 Urine Nitrite (Auto) Positive 10/28/23 15:38 Urine Bilirubin (Auto) 0 mg/dL 10/28/23 15:38 Urine Urobilinogen (Auto) 0.2 mg/dL 10/28/23 15:38 Leukocyte Esterase (Auto) 70 Karlos/uL 10/28/23 15:38 Assessment & Plan Assessment & Plan (1) UTI (urinary tract infection): Code(s): N39.0 - Urinary tract infection, site not specified Category: Medical (2) OAB (overactive bladder): Code(s): N32.81 - Overactive bladder Category: Medical Plan Myrbetriq 25 mg daily. Urine c/s. Orders: Orders AMB Urinalysis Automated 10/28/23 Z13.9 - Encounter for screening, unspecified Urine Culture 10/28/23 N39.0 - Urinary tract infection, site not specified AMB Post Void Residual by ultrasound 10/28/23 N39.8 - Other specified disorders of urinary system Medications: Refilled mirabegron ER (Myrbetriq) 25 mg PO DAILY 90 tabs 3RF 90 days R39.15 - Urgency of urination Patient Instructions: The patient had an opportunity to ask questions regarding treatment plan. The patient expressed understanding and agreement with the above treatment plan. The patient is aware they should contact our office by phone for worsening of their current condition or the appearance of new symptoms. Compliance is encouraged with any medications and followup testing that is ordered. It is a privilege to be allowed the opportunity to participate in the urologic care of your patient. If you have any questions or concerns regarding treatment for the above conditions please do not hesitate to contact me. The office telephone contact is [phone]. This note is constructed in part using voice recognition software. While every effort has been made to ensure accuracy tobacco roller errors may have been included. Yours sincerely, Alana Jules MD Coding Level of Care Code Est Pt Level 4 (34026) Diagnoses UTI (urinary tract infection) N39.0 OAB (overactive bladder) N32.81 CPT Codes Post Residual Void - PVR CPT Code: 81123-Dcmn Void Residual by ultrasound ([id number])
== END 2023-10-28 16:25 | disposition home or self-care (01) ==
PROVIDERS: PCP Internal Medicine Geriatric Medicine; Visit Provider Urology
DX: N39.0 Urinary tract infection, site not specified (principal); N32.81 Overactive bladder
CPT/HCPCS: 99214

== ENCOUNTER 2023-10-28 15:27 | Outpatient (REF) | payer OTHER, SELFPAY | END 2023-10-28 15:28 | disposition home or self-care (01) | LOC: HO.LAB 15:27 | PROVIDERS: PCP Internal Medicine Geriatric Medicine; Visit Provider Urology | DX: N32.81 Overactive bladder (principal); N39.0 Urinary tract infection, site not specified; N39.8 Other specified disorders of urinary system; E11.22 Type 2 diabetes mellitus with diabetic chronic kidney disease; I12.9 Hypertensive chronic kidney disease with stage 1 through stage 4 chronic kidney disease, or unspecified chronic kidney disease; N18.4 Chronic kidney disease, stage 4 (severe); Z79.899 Other long term (current) drug therapy | CPT/HCPCS: 51798; 81003; 87086; 87088; 87186; 99212 ==

== ENCOUNTER 2024-01-10 09:39 | Outpatient (REF) | payer OTHER, SELFPAY ==
[2024-01-10 13:37] VITALS: BP 152/86; PULSE 62; RESP 16; TEMP 36; O2SAT 98; BMI 34.8
== END 2024-01-10 09:40 | disposition home or self-care (01) ==
LOC: HO.MS 09:39
PROVIDERS: PCP Internal Medicine Geriatric Medicine; Visit Provider Ophthalmology
PROC: (CPT 66821; principal; 2024-01-10 14:00)
DX: H26.492 Other secondary cataract, left eye (principal)
CPT/HCPCS: 66821

== ENCOUNTER 2024-02-02 11:33 | Outpatient (REF) | payer OTHER, SELFPAY ==
[2024-02-02 14:42] LABS: TSH reflex Free T4 4.83 uIU/mL (0.32-4.0)
[2024-02-02 16:03] LABS: Free T4 (Free Thyroxine) 1.04 ng/dL (0.71-1.85)
== END 2024-02-02 11:34 | disposition home or self-care (01) ==
LOC: HO.HHCL 11:33
PROVIDERS: Visit Provider Internal Medicine Geriatric Medicine
DX: E03.8 Other specified hypothyroidism (principal)
CPT/HCPCS: 36415; 84439; 84443

== ENCOUNTER 2024-08-21 07:57 | Outpatient (REF) | payer OTHER, SELFPAY ==
[2024-08-21 08:27] LABS: MANUAL DIFF FLAG NO
[2024-08-21 08:57] LABS: Basophils Percent Auto 0.4 % (0-2); Eosinophils Absolute Auto 0.1 X10*3/uL (0.0-0.4); Hematocrit 33.8 % (37.0-47.0); Hemoglobin 10.5 g/dl (12.0-16.0); Imm Gran Abs Auto 0.01 X10*3/uL (0.00-0.03); Imm Gran Pct Auto 0.2 % (0.0-0.4); Lymphocytes Absolute Auto 1.7 X10*3/uL (1.2-4.9); Lymphocytes Percent Auto 35.5 % (20-40); Mean Corpuscular HGB Conc 31.1 g/dl (31.0-35.0); Mean Corpuscular Hemoglobin 27.5 pg (27.0-33.0); Mean Corpuscular Volume 88.5 fL (80.0-98.0); Monocytes Absolute Auto 0.5 X10*3/uL (0.1-1.2); Monocytes Percent Auto 9.5 % (2-11); Neutrophils Absolute Auto 2.4 x10*3/uL (2.0-8.3); Neutrophils Percent Auto 51.4 % (45-73); Platelet Count 244 X10*3/uL (160-400); Red Blood Count 3.82 X10*6/uL (4.20-5.50); Red Cell Distribution Width 13.4 % (11.0-16.0); White Blood Count 4.7 X10*3/uL (4.8-10.8)
[2024-08-21 09:05] LABS: Appearance Urine Cloudy; Color Urine Yellow; Glucose Urine UA 500 mg/dL (Negative); Leukocyte Esterase Urine Large (3+) (Negative); Nitrite Urine Negative (Negative); PH 5.5 (5.0-9.0); Specific Gravity - Urine 1.015 (1.005-1.025); UMIC TRIGGER UA YES; Urine Blood Negative (Negative); Urine Ketones Negative (Negative); Urine Protein 300 (3+) mg/dL (Neg-Trace)
[2024-08-21 09:11] LABS: Bacteria Urine 4+ (None Seen); RBC Urine 0-2 /HPF (0-2); Squamous Epithelial Cell Urine 0-2 /HPF (0-2); WBC Urine >50 /HPF (0-5)
[2024-08-21 09:47] LABS: Albumin Level 3.8 g/dL (3.5-5.0); Anion Gap 13 (12-20); Blood Urea Nitrogen 62 mg/dL (9-16); Calcium 9.4 mg/dL (8.4-10.2); Carbon Dioxide 27 mmol/L (22-29); Chloride 111 mmol/L (96-108); Estimated Glomerular Filt Rate 18; Iron 45 mcg/dL (30-160); Magnesium 2.6 mg/dL (1.6-2.6); Percent Iron Saturation 23 % (15-50); Phosphorus 4.3 mg/dL (2.7-4.5); Sodium 146 mmol/L (135-145); Total Iron Binding Capacity 195 mcg/dL (228-428); Unsaturated Iron Binding 150 ug/dL
[2024-08-21 09:54] LABS: Vitamin D 25-OH Total 39.9 ng/mL (>30)
[2024-08-21 10:54] LABS: Parathyroid Hormone Intact 128.3 pg/mL (8.7-77.1)
[2024-08-21 10:54] LABS: Creatinine Urine 93.76 mg/dL; Microalbum/Creatinine Ratio Ur 1534.7 ug/mg cr (<30); Protein/Creatinine Ratio, Ur 2.18 (<0.2); Total Protein Urine Random 204 mg/dL (<12)
== END 2024-08-21 07:58 | disposition home or self-care (01) ==
LOC: HO.LAB 07:57
PROVIDERS: PCP Internal Medicine Geriatric Medicine; Visit Provider Internal Medicine Nephrology
DX: N18.4 Chronic kidney disease, stage 4 (severe) (principal); E11.22 Type 2 diabetes mellitus with diabetic chronic kidney disease; D63.1 Anemia in chronic kidney disease; N18.9 Chronic kidney disease, unspecified
CPT/HCPCS: 36415; 80051; 81001; 81003; 82040; 82043; 82306; 82310; 82565; 82570; 83540; 83735; 83970; 84100; 84156; 84520; 85025; 87086; 87088; 87186

== ENCOUNTER 2024-11-14 09:48 | Outpatient (REF) | payer OTHER, SELFPAY ==
--- OUTSIDE RECORDS SUMMARY | 2024-11-14 10:44 | XMS_ITS | Encounter Summary ---
Author Organization [employer] Address [address] [place] [address] Care Team Providers Care Battery Parts Assembler Name Role Phone Name, Yobany GRACE Primary Care Provider [phone] Justine Leung PharmD Unavailable [phone] Reason for Visit * Reason Comments Med Refill Encounter Details Date Type Department Care Team ([facility] st Contact Info) Description 03/03/2023 Refill [facility] MED & PEDS [address] [place], [place] [id number] Name, MD Yobany [address] [place] [address] Hypothyroidism, unspecified type Social History Tobacco Use Types Packs/Day Years Used Date Smoking Tobacco: Never Smokeless Tobacco: Never Alcohol Use Standard Drinks/Week Comments Never 0 (1 standard drink = 0.6 oz pur e alcohol) PHQ-2 Answer Date Recorded Patient Health Questionnaire-2 Score 0 06/17/2022 Housing Stability Answer Date Recorded What is your housing situation today? I have heather oconnell 03/02/[address] you li ve. Do you have problems with any of the following? None of the above 03/02/2023 Food Insecurity Answer Date Recorded Within the past 12 months, y ou worried that your food would run out before you got money to buy more: Never True 03/02/2023 Within the past 12 months,th e food you bought just didn't last and you didn't have enough money to get more: Never True 02/2023 Transportation Answer Date Recorded In the past 12 months, has l ack of transportation kept you from medical appts, meetings, work or from getting things needed for daily living? No 03/02/2023 Utilities Answer Date Recorded In the past 12 months, has t he electric, gas, oil or water company threatened to shut off services in your home? No 03/02/2023 Depression Answer Date Recorded Patient Health Questionnaire-2 Score 0 06/17/2022 Comments Unknown Sex and Gender Information Value Date Recorded Sex Assigned at Female 03/23/2022 10:16 AM EDT Legal Sex Female 10:16 AM EDT Gender Identity Female 03/23/2022 10:16 AM EDT Sexual Orientation Straight 03/23/2022 10 :16 AM EDT documented as of this encounter Plan of Treatment Upcoming Encounters Date Type Department Care Team (Late st Contact Info) Description 02/09/2025 9:00 AM EDT Office Visit [facility] MEDICINE [address] [place] [phone] NameYobany MD [address] [place] [phone] documented as of this encounter Goals Goal Patient Goal Type Associated Problems Recent Progress Patient-Stated? Author Hemoglobin A1c < 7 Result Component 7(11/14/2024 9:23 AM EDT) No Justine Leung, PharmD Record your blood sugar as directed Result Component No Justine Leung, PharmD Note: Use CGM, ensuring sensor is scanned at least once every 8 hours to capture 24H data. Check BG manually, as directed. documented as of this encounter Visit Diagnoses Diagnosis Hypothyroidism, unspecified type documented in this encounter Care Teams Battery Parts Assembler Relationship Specialty Start Date End Date Name, MD Yobany [address] [place] [phone] PCP - General Family Medicine 02/05/21 Justine Leung PharmD [address] [place] [phone] Pharmacist Internal Medicine 12/08/22 Altranais 07/27/24 documented as of this encounter
[2024-11-14 12:05] LABS: TSH reflex Free T4 2.48 uIU/mL (0.32-4.0)
== END 2024-11-14 09:49 | disposition home or self-care (01) ==
LOC: HO.HHCL 09:48
PROVIDERS: PCP Internal Medicine Geriatric Medicine; Visit Provider Internal Medicine Geriatric Medicine
DX: E03.9 Hypothyroidism, unspecified (principal)
CPT/HCPCS: 36415; 84443

== ENCOUNTER 2024-11-20 11:09 | Outpatient (REF) | payer OTHER, SELFPAY ==
--- OUTSIDE RECORDS SUMMARY | 2024-11-20 12:02 | XMS_ITS | Encounter Summary ---
Author Organization [employer] Address [address] [facility] [address] [facility] [place] [address] Care Team Providers Care Anthropology Professor Name Role Phone Name, Yobany GRACE Primary Care Provider [phone] Justine Leung PharmD Unavailable [phone] Reason for Visit * Reason Comments Med Refill Encounter Details Date Type Department Care Team ([facility] st Contact Info) Description 03/03/[address] [facility] MED & PEDS [address] [place], [place] [phone] Name, MD Yobany [address] [place] [address] Hypothyroidism, unspecified type Social History Tobacco Use [...] Description 02/09/2025 9:00 AM EDT Office Visit [facility] MEDICINE [address] [place] [phone] NameYobany MD [address] [place] [phone] documented as of this encounter Goals Goal [...] type documented in this encounter Care Teams Anthropology Professor Relationship Specialty Start Date End Date Name, MD Yobany [address] [place] [phone] PCP - General Family Medicine 02/05/21 Justine Leung PharmD [address] [place] [phone] Pharmacist Internal Medicine 12/08/22 Altranais 07/27/24 documented as of this encounter
== END 2024-11-20 11:10 | disposition home or self-care (01) ==
LOC: HO.MAMMO 11:09
PROVIDERS: PCP Internal Medicine Geriatric Medicine; Visit Provider Internal Medicine Geriatric Medicine
DX: Z12.31 Encounter for screening mammogram for malignant neoplasm of breast (principal)
CPT/HCPCS: 77063; 77067

== ENCOUNTER → 2024-11-20 12:15 | Outpatient (BNV) | payer OTHER, SELFPAY | PROVIDERS: PCP Internal Medicine Geriatric Medicine; Visit Provider Internal Medicine | DX: Z12.31 Encounter for screening mammogram for malignant neoplasm of breast (principal) | CPT/HCPCS: 77063; 77067 ==